=== PATIENT | female | born 1955 | race American Indian/Alaskan Native ===

== ENCOUNTER 2016-07-02 06:04 | Day surgery (SDC) | payer MEDICARE ==
[~2016-07-02 06:04] MED LIST: ANCEF/STERILE WATER 2 GM/20 ML IV NR; NACL 0.9% 1000 ML 1,000 ML IV SCH; PEPCID PO NR; VERSED IV NR
[2016-07-02] MEDS ORDERED: DIPRIVAN 10 MG/ML IV ONE (07:12)
--- NOTE | 2016-07-02 07:12 | Anesthesia Consultation ---
Anesthesia Consult and Med Hx Date of service: 07/02/16 - Airway Anesthetic Teeth Evaluation: Dentures ROM Head & Neck: Inadequate Mental/Hyoid Distance: Adequate Mallampati Class: Class IV Intubation Access Assessment: Difficult - Pulmonary Exam CTA: Yes - Cardiac Exam Cardiac Exam: RRR - Pre-Operative Health Status ASA Pre-Surgery Classification: ASA3 Proposed Anesthetic Plan: MAC - Pre-Anesthesia Comment Pre-Anesthesia Comments: Pt has had cervical fusion with plating and has minemal ability to extend neck.She presently has generalized pain due to being off her anti-inflammatories. She jurado history of interstitial cystitis. - Pulmonary Hx Smoking: Yes (CIGARETTES 1 PPD X 3 YRS, QUIT IN 1993) Hx Sleep Apnea: No - Cardiovascular System Hx Hypertension: Yes (FOR 20+ YRS, DR. MARIA DEL ROSARIO CHAHAL- PCP) - Central Nervous System Hx Neuromuscular Disorder: Yes (Rheumatoid arthritis) Hx Psychiatric Problems: No - Endocrine Hx Hypothyroidism: Yes - Other Systems Hx Cancer: No
[2016-07-02] MEDS ORDERED: XYLOCAINE 1% 20 mL ONE (07:14)
[2016-07-02] MEDS ORDERED: DILAUDID IV PRN (07:14)
[2016-07-02] MEDS ORDERED: ZOFRAN IV PRN (07:14)
[2016-07-02] MEDS ORDERED: NORCO 5/325 PO PRN (07:14)
--- NOTE | 2016-07-02 07:14 | Anesthesia Day of Surgery ---
Anesthesia Day of Surgery - Day of Surgery Patient Examined: Yes Patient H&P Reviewed: Yes Patient is NPO: Yes
[2016-07-02] MEDS ORDERED: XYLOCAINE MPF 2% ONE (07:17)
[2016-07-02] MEDS ORDERED: DECADRON ONE (07:19)
[2016-07-02] MEDS ORDERED: MARCAINE-EPI 0.5%-1:200,000 INFILTRATI ONE (07:53)
[2016-07-02] MEDS ORDERED: WATER FOR IRRIG STERILE IR ONE (07:53)
[2016-07-02] MEDS ORDERED: XYLOCAINE 1% 20 mL INFILTRATI ONE (07:54)
[2016-07-02] MEDS ORDERED: ZOFRAN IV NR (08:00)
[2016-07-02] MEDS ORDERED: DECADRON IV NR (08:00)
[2016-07-02] MEDS ORDERED: XYLOCAINE 1% 20 mL INFILTRATI NR (08:19)
--- NOTE | 2016-07-02 08:31 | Mammography Report ---
NEEDLE LOCALIZATION AND HOOKWIRE PLACEMENT RIGHT BREAST:07/02/16 CLINICAL: Right breast calcifications. COMPARISON: 04/23/16 mammogram. FINDINGS: Using mammographic guidance, 1% lidocaine local anesthesia and sterile technique, a 12.0-cm Potter hookwire was placed from a lateral approach to localize lateral and inferior calcifications. Two views demonstrated satisfactory targeting. The hookwire was deployed and two additional orthogonal images were obtained. The patient tolerated the procedure well and there were no apparent complications. IMPRESSION: Uncomplicated hookwire placement right breast.
[2016-07-02] MEDS ORDERED: NEO SYNEPHRINE/NS Syringe(OR USE) IV ONE (09:26)
[2016-07-02] MEDS ORDERED: MARCAINE 0.25% INFILTRATI ONE (09:31)
[2016-07-02] MEDS ORDERED: NACL 0.9% 1000 ML 1,000 ML ONE (09:47)
--- NOTE | 2016-07-02 10:02 | Short Stay Summary ---
Short Stay Documentation Date of service: 07/02/16 - History H&P: obtained from office - Allergies and Medications Current Medications: Allergies codeine Adverse Reaction (Verified 06/13/16 10:19) Vomiting, headaches Home Medications Medication Instructions Recorded Confirmed Last Taken Type Albuterol Sulfate [Ventolin HFA] 2 puff IH Q4-6H PRN 06/13/16 07/02/16 06/30/16 History Bisoprolol/Hctz [Ziac 10-6.25] 1 each PO DAILY 06/13/16 07/02/16 07/01/16 History Cyclobenzaprine [Flexeril] 10 mg PO QHS 06/13/16 06/13/16 Unknown History Etodolac [Etodolac ER] 500 mg PO BID 06/13/16 07/02/16 06/26/16 History Fluticasone [Flonase] 1 spray NS BID 06/13/16 07/02/16 06/25/16 History Gabapentin [Neurontin] 300 mg PO BID 06/13/16 07/02/16 07/01/16 History HYDROcodone/APAP 5-325 [[place] 1 each PO BID PRN 06/13/16 07/02/16 07/01/16 History 5/325] Levothyroxine Sodium 137 mcg PO QAM 06/13/16 07/02/16 07/01/16 History [Levothyroxine] Losartan [Cozaar] 100 mg PO QDAY 06/13/16 07/02/16 07/01/16 History Montelukast [Singulair] 10 mg PO QPM 06/13/16 07/02/16 06/30/16 History methylPREDNISolone [Medrol] 4 mg PO QDAY 06/13/16 07/02/16 07/01/16 History traMADol [Ultram 50 MG tab] 50 mg PO Q6HR PRN #30 tablet 07/02/16 Unknown Rx Active Medications Acetaminophen/Hydrocodone Bitart ([place] 5/325) 2 each PO ONCE PRN PRN Reason: Pain, Moderate (4-6) Stop: 07/02/16 16:00 Cefazolin Sodium (Ancef/Sterile Water 2 Gm/20 Ml) 2 gm IV PREOP NR Stop: 07/02/16 23:59 Dexamethasone (Decadron) 10 mg IV PREOP NR Stop: 07/02/16 16:00 Famotidine (Pepcid) 20 mg PO PREOP NR Stop: 07/02/16 23:59 Last Admin: 07/02/16 07:10 Dose: 20 mg Hydromorphone HCl (Dilaudid) 0.5 mg IV Q10MIN PRN PRN Reason: Pain , Severe (7-10) Stop: 07/05/16 16:00 Sodium Chloride (Nacl 0.9% 1000 Ml) 1,000 mls @ 75 mls/hr IV DIRECT SYDNI Last Admin: 07/02/16 08:30 Dose: 75 mls/hr Lidocaine (Xylocaine 1% 20 Ml) 20 ml INFILTRATI ONCE NR Stop: 07/02/16 16:00 Midazolam HCl (Versed) 2 mg IV PREOP NR Stop: 07/02/16 23:59 Last Admin: 07/02/16 08:33 Dose: 2 mg Ondansetron HCl (Zofran) 4 mg IV ONCE PRN PRN Reason: Nausea And Vomiting Stop: 07/02/16 16:00 Ondansetron HCl (Zofran) 4 mg IV PREOP NR Stop: 07/02/16 16:00 - Brief post op/procedure progress note Date of procedure: 07/02/16 Pre-op diagnosis: Abnormal right mammogram Post-op diagnosis: same Procedure: Right needle localization excisonal biopsy Anesthesia: GETA Findings: Radiograph specimen with suspicious microcalcifications present Surgeon: FRANKLYN MORALES Estimated blood loss: minimal Pathology: list (right breast excisional biopsy) Specimen disposition: to lab Condition: stable - Disposition Condition at discharge: Good Disposition: DISCHARGED TO HOME OR SELFCARE Short Stay Discharge Plan Activity: other (no heavy lifting) Diet: low carbohydrate Wound: other (keep incision clean, dry and intact; may shower in 24 hours; no baths, pools or lakes; do not rub or scrub incision) Prescriptions: traMADol [Ultram 50 MG tab] 50 mg PO Q6HR PRN #30 tablet PRN Reason: Pain
--- NOTE | 2016-07-02 10:10 | Operative Report ---
Operative Report Operative Report: Date of procedure: June 27 Pre-operative diagnosis: Abnormal right mammogram with suspicious microcalcifications of the lower inner quadrant Post-operative diagnosis: Same Procedure name(s): Right needle localization excisional biopsy Surgeon: Carmen Andrade M.D. Anesthesia: Gen. Findings: Radiograph specimen with wire present within the area of suspicious microcalcifications Complications: None Drains: None Disposition: PACU in good condition Indications for operative procedure: This is a 60-year-old lady with recent findings of suspicious microcalcifications of the right breast of he lower inner quadrant. Recommendations were to proceed with stereotactic breast biopsy and patient wished to proceed with surgical excision excision given concerns of the positioning needed for stereotactic table. The above procedure was explained to the patient in great detail and she wished to proceed. Procedure in detail: Wire was placed by radiology prior to proceeding to surgery to localize microcalcifications of the right lower inner breast. The patient was taken to the operating room. Gen. anesthesia was administered without any complications. Right breast was prepped and draped in the normal operative sterile fashion. The wire was identified. Skin incision was then made through the skin with a 15 blade knife with dissection taken down to the subcutaneous tissues with the aid of Bovie cautery. Superior flap was then raised and taken down posteriorly followed by raising of the medial flap, inferior flap and lateral flap. The specimen was appropriately removed with the Bovie cautery with the wire not encountered nor seen. Radiograph specimen with wire present with suspicious calcifications present. Hemostasis was noted. Breast cavity was irrigated. The skin and tissues were anesthetized with 1% lidocaine with quarter percent marcaine. The subcutaneous tissue were approximated and closed with interrupted 3-0 Vicryl. The skin was closed with a running 4-0 Monocryl and skin affix. The patient tolerated the surgery very well and she was awakened from anesthesia without any complication and then transferred to PACU in good condition.
--- NOTE | 2016-07-02 10:32 | Mammography Report ---
SPECIMEN RADIOGRAPH RIGHT BREAST: 07/02/16 06:04:00 CLINICAL: Surgical excision of calcifications. FINDINGS: The targeted calcifications and a hookwire are identified within the specimen. IMPRESSION: Excision of targeted calcifications.
--- NOTE | 2016-07-02 10:45 | Post Anesthesia Evaluation ---
- Post Anesthesia Evaluation Patient Participated: Yes Airway Patent: Yes Stable Respiratory Function: Yes Nausea/Vomiting: No Temp > 96.8F: Yes Pain Manageable: Yes Adequeate Hydration: Yes Anesthesia Complications: No Block Receding Appropriately: Not Applicable Patient on Ventilator: No
[2016-07-02 12:08] VITALS: BP 118/62
== END 2016-07-02 12:30 | disposition home or self-care (01) ==
LOC: OR 06:04
PROVIDERS: ATTEND Surgery
DX: R92.8 Other abnormal and inconclusive findings on diagnostic imaging of breast (principal); M06.9 Rheumatoid arthritis, unspecified; I10 Essential (primary) hypertension; E03.9 Hypothyroidism, unspecified; M41.9 Scoliosis, unspecified; Z87.891 Personal history of nicotine dependence; Z98.890 Other specified postprocedural states; Z98.1 Arthrodesis status; Z80.3 Family history of malignant neoplasm of breast
CPT/HCPCS: 19125; 19281; 76098; 88307; J0690; J1100; J2250; J2370; J2704; J7030; 88361

== ENCOUNTER 2016-08-13 07:42 | Day surgery (SDC) | payer MEDICARE ==
[~2016-08-13 07:42] MED LIST changes: -ANCEF/STERILE WATER 2 GM/20 ML IV NR; +NEURONTIN PO NR; +SUBLIMAZE IV ONE
--- NOTE | 2016-08-13 08:46 | Anesthesia Consultation ---
Anesthesia Consult and Med Hx Date of service: 08/13/16 - Airway Anesthetic Teeth Evaluation: Dentures (upper) ROM Head & Neck: Inadequate Mental/Hyoid Distance: Inadequate Mallampati Class: Class IV Intubation Access Assessment: Possibly Difficult - Pulmonary Exam CTA: Yes - Cardiac Exam Cardiac Exam: RRR - Pre-Operative Health Status ASA Pre-Surgery Classification: ASA3 Proposed Anesthetic Plan: General - Pre-Anesthesia Comment Pre-Anesthesia Comments: HX cervical fusion with plates, inadequate neck mobility. Anesthesia 06/2016, tolerated well with LMA #4 - Pulmonary Hx Smoking: Yes (CIGARETTES 1 PPD X 3 YRS, QUIT IN 1993) - Cardiovascular System Hx Hypertension: Yes (FOR 20+ YRS, DR. MARIA DEL ROSARIO CHAHAL- PCP) - Central Nervous System Hx Neuromuscular Disorder: Yes (Rheumatoid arthritis) Hx Psychiatric Problems: No - Endocrine Hx Hypothyroidism: Yes - Other Systems Hx Cancer: Yes (RIGHT BREAST, DX: 06/2016)
--- NOTE | 2016-08-13 08:47 | Anesthesia Day of Surgery ---
Anesthesia Day of Surgery - Day of Surgery Patient Examined: Yes Patient H&P Reviewed: Yes Patient is NPO: Yes Beta Blockers: Yes
[2016-08-13] MEDS ORDERED: PEPCID PO NR (09:00)
[2016-08-13] MEDS ORDERED: XYLOCAINE 1% 20 mL ONE ×2 (09:03→11:15)
[2016-08-13] MEDS ORDERED: ANCEF/STERILE WATER 2 GM/20 ML IV NR (10:00)
[2016-08-13] MEDS ORDERED: DIPRIVAN 10 MG/ML IV ONE (10:48)
[2016-08-13] MEDS ORDERED: DILAUDID ONE (10:49)
[2016-08-13] MEDS ORDERED: NEURONTIN PO NR (11:00)
[2016-08-13] MEDS ORDERED: MARCAINE-EPI 0.5%-1:200,000 INFILTRATI ONE (11:15)
[2016-08-13] MEDS ORDERED: DECADRON ONE (11:15)
[2016-08-13] MEDS: SUBLIMAZE IV NR ×2 (11:32→11:35)
--- NOTE | 2016-08-13 11:41 | Mammography Report ---
Right breast needle localization procedure. History: Right microcalcifications. Findings: 2 wire localization was used in the study due to the extent of microcalcifications. Using mammographic guidance, a 7.5 cm Potter needle was advanced into the posterior margin of the microcalcifications. A hookwire was left in place. Subsequently, a 5 cm Potter needle was advanced into the anterior margin of the calcifications in the right breast. A hookwire was left in place in adequate position of the wires was confirmed. The patient tolerated the procedure well clinically and was sent to surgery in satisfactory condition.
[2016-08-13] MEDS ORDERED: XYLOCAINE MPF 2% ONE (12:45)
[2016-08-13] MEDS ORDERED: NEO SYNEPHRINE/NS Syringe(OR USE) IV ONE (13:34)
[2016-08-13] MEDS ORDERED: WATER FOR IRRIG STERILE IR ONE (14:10)
[2016-08-13] MEDS ORDERED: METHYLENE BLUE IV ONE (14:11)
[2016-08-13] MEDS ORDERED: ZOFRAN ONE (14:24)
--- NOTE | 2016-08-13 15:33 | Short Stay Summary ---
Short Stay Documentation Date of service: 08/13/16 - History H&P: obtained from office - Allergies and Medications Current Medications: Allergies codeine Adverse Reaction (Verified 06/13/16 10:19) Vomiting, headaches Home Medications Medication Instructions Recorded Confirmed Last Taken Type Albuterol Sulfate [Ventolin HFA] 2 puff IH Q4-6H PRN 06/13/16 08/13/16 08/11/16 History Bisoprolol/Hctz [Ziac 10-6.25] 1 each PO DAILY 06/13/16 08/11/16 08/13/16 06:45 History Cyclobenzaprine [Flexeril] 10 mg PO QHS 06/13/16 08/11/16 08/12/16 History Etodolac [Etodolac ER] 500 mg PO BID 06/13/16 08/13/16 08/08/16 History Fluticasone [Flonase] 1 spray NS BID 06/13/16 08/11/16 08/12/16 History Gabapentin [Neurontin] 300 mg PO BID 06/13/16 08/11/16 08/12/16 History HYDROcodone/APAP 5-325 [[place] 1 each PO BID PRN 06/13/16 08/11/16 08/12/16 History 5/325] Levothyroxine Sodium 137 mcg PO QAM 06/13/16 08/11/16 08/13/16 06:45 History [Levothyroxine] Losartan [Cozaar] 100 mg PO QDAY 06/13/16 08/11/16 08/13/16 06:45 History Montelukast [Singulair] 10 mg PO QPM 06/13/16 08/11/16 08/12/16 History methylPREDNISolone [Medrol] 4 mg PO QDAY 06/13/16 08/11/16 08/12/16 History traMADol [Ultram 50 MG tab] 50 mg PO Q6HR PRN #30 tablet 07/02/16 08/11/1608/12 Rx Ibuprofen [Motrin 800 MG tab] 800 mg PO Q8HR PRN #30 tablet 08/13/16 Unknown Rx Potassium Chloride [Klor-Con M20] 1 tab PO QDAY 08/13/16 08/13/16 08/12/16 History Active Medications Cefazolin Sodium (Ancef/Sterile Water 2 Gm/20 Ml) 2 gm IV PREOP NR Stop: 08/13/16 23:59 Celecoxib (Celebrex) 200 mg PO PREOP NR Stop: 08/13/16 23:59 Last Admin: 08/13/16 10:48 Dose: 200 mg Famotidine (Pepcid) 20 mg PO PREOP NR Stop: 08/13/16 23:59 Fentanyl (Sublimaze) 100 mcg IV ONCE NR Stop: 08/13/16 23:59 Last Admin: 08/13/16 11:35 Dose: 50 mcg Gabapentin (Neurontin) 300 mg PO PREOP NR Stop: 08/13/16 23:59 Last Admin: 08/13/16 10:48 Dose: 300 mg Hydrocortisone Sodium Succinate (Solu-Cortef) 100 mg IV ONCE NR Stop: 08/13/16 23:59 Last Admin: 08/13/16 11:17 Dose: 100 mg Sodium Chloride (Nacl 0.9% 1000 Ml) 1,000 mls @ 100 mls/hr IV DIRECT SYDNI Last Admin: 08/13/16 10:45 Dose: 100 mls/hr Midazolam HCl (Versed) 2 mg IV PREOP NR Stop: 08/13/16 23:59 Last Admin: 08/13/16 11:32 Dose: 2 mg - Brief post op/procedure progress note Date of procedure: 08/13/16 Pre-op diagnosis: Right breast cancer Post-op diagnosis: same Procedure: Right breast partial mastectomy margin revision and SLNB Anesthesia: GETA Surgeon: FRANKLYN MORALES Estimated blood loss: minimal Pathology: list (right breast margin revision and SLN) Specimen disposition: to lab Condition: stable - Disposition Condition at discharge: Good Disposition: DISCHARGED TO HOME OR SELFCARE Short Stay Discharge Plan Activity: other (no heavy lifting) Diet: low fat Wound: other (keep incision clean and dry; may shower in 24 hours; no baths, pools or lakes) Follow up with: MARIA DEL ROSARIO CHAHAL MD [Primary Care Provider] - 7 Days FRANKLYN MORALES MD [Staff Physician] - 7 Days Prescriptions: Ibuprofen [Motrin 800 MG tab] 800 mg PO Q8HR PRN #30 tablet PRN Reason: Pain
--- NOTE | 2016-08-13 15:48 | Operative Report ---
Operative Report Operative Report: Date of Surgery: August 13, 2016 Preoperative Diagnosis: Right breast cancer of the lower outer quadrant with positive surgical margins Postoperative Diagnosis: Same Procedure: Right breast partial mastectomy margin revision and SLNB Surgeon: Carmen Andrade MD Anesthesia: General Findings:SLNB with 4 nodes identified; partial mastectomy margin revision Complications: None Drains: None Disposition: PACU in good condition Indications for operative procedure: This is a 60-year-old lady newly diagnosed right breast cancer of the lower outer quadrant recently underwent excisional biopsy with findings of invasive carcinoma and DCIS in need of margin revision given positive surgical margins for DCIS and SLNB indicated given invasive breast cancer. Recommendation were to proceed with the above procedure. Patient wished to proceed. Procedure in Detail: The patient was taken to the operating room and was laid supine. Radiology placed 2 wires to localize additional macrocalcifications for excision. Gen. anesthesia was administered. The right breast and axilla were prepped and draped in was operative fashion. The nipple was injected with radioisotope and 1 mL of blue dye. Timeout was performed. Gamma probe was inserted into the axilla for identification of sentinel lymph node biopsies. Skin incision was made with 15 blade knife with dissection taken down to the subcutaneous tissues. Axillary fascia was opened. Gamma probe was inserted for identification of sentinel lymph nodes. 4 sentinel lymph nodes were identified associated with the axillary lipoma that were appropriately removed. Hemostasis was noted. Axillary cavity was irrigated. Axillary fascia was approximated and closed with interrupted 3-0 Vicryl and skin closed with running 4-0 Monocryl and skin affix. Attention was then taken towards the margin revision. The wires were identified that were marking the area of additional microcalcifications for excision that were thought to be part of the excisional biopsy cavity site. Skin incision was made with a 10 blade knife at the surgical incision around the 7:30 position. First began with the margin revision, seroma cavity was encountered and drain. Then began with revising the margins superiorly, medially , posteriorly and inferiorly with the aid of the bovie cautery. These were appropriately marked and sent to pathology. Attention was then taken towards location of the wires. The wires were noted not to be located within the biopsy cavity site that was originally thought to be located that marked the area of additional calcifications that needed to be removed given high suspicion for malignancy. Discussed these findings with Dr. Hdez with my concern that the area of excision needed was at least 7 cm that was not part of or continuous with the current surgical site and would result in removal over 35% of the patient's breast. It was decided to remove the wires that were placed by radiology for localization and not to proceed with any additional surgery. Patient will need to come back for a right total mastectomy given the extensiveness of macro calcifications present that are highly suspicious for malignancy given calcifications are not a located within the prior partial mastectomy site as recently thought from prior imaging. Breast cavity was appropriately irrigated and suctioned. Hemostasis was noted. The subcutaneous tissues were approximated and closed with interrupted 3-0 Vicryl and skin closed with running 4-0 Monocryl and skin affix. The patient tolerated surgery very well and she was awakened from anesthesia without any complications and transported to PACU in good condition.
--- NOTE | 2016-08-13 16:01 | Post Anesthesia Evaluation ---
- Post Anesthesia Evaluation Patient Participated: Yes Airway Patent: Yes Stable Respiratory Function: Yes Nausea/Vomiting: No Temp > 96.8F: Yes Pain Manageable: Yes Adequeate Hydration: Yes Anesthesia Complications: No
[2016-08-13] MEDS ORDERED: TORADOL IV PRN (16:02)
[2016-08-13] MEDS ORDERED: DILAUDID IV PRN (16:58)
[2016-08-13] MEDS ORDERED: ZOFRAN IV PRN (16:58)
[2016-08-13 18:17] VITALS: BP 120/78
--- NOTE | 2016-08-13 21:45 | Admit Criteria Form ---
Admission Criteria Documentation: AMBULATORY SURGERY EXCEPTION CRITERIA Ambulatory Surgery Exception Criteria ( Place 'X' for any and all applicable criteria): Surgery or procedure performed on ambulatory basis may require inpatient stay for[A] ANY ONE of the following(1)(2)(3)(4)(5)(6)(7)(8)(9): [X] I. A preoperative situation, condition, or finding that warrants inpatient stay as indicated by ANY ONE of the following: [] a) Inpatient care needed because of severity of a disease or condition rather than the surgery (eg, severe cardiac or respiratory disease, severe infection) (15) (16 ) (17) (18) [] b) Emergent procedure (eg, angioplasty for acute ischemia)(19) [] c) Complex surgical approach or situation as indicated by ANY ONE of the following(3): [] i) Open approach needed instead of usual endoscopic, transcatheter, or other less invasive procedure [] ii) Difficult approach because of previous operation [] iii) Airway monitoring required after open neck procedures(20)(21) [] iv) Large mass requiring unusually extensive dissection [] v) Additional complicating feature requiring inpatient care (eg, drain management)(22(23): [X] d) Major surgery in a pt with high anesthetic risk as indicated by ANY ONE of the following (2)(3)(5)(7)(8): [X] i) ASA risk class III or higher (severe systemic disease impairing function) [D] [] ii) Advanced age (eg, older than 85 years)(14)(24) [] iii) Symptomatic heart failure(25) [] iv) Symptomatic asthma or COPD(8)(21) [] v) Morbid obesity with hemodynamic or respiratory problems(20)( 21)(26)(27) [] vi) Obstructive sleep apnea(20)(21) [] vii) Former premature infants who are younger than 60 weeks [] viii) High risk for severe postoperative abnormalities (eg, severe postoperative hypocalcemia after parathyroidectomy for severe hyperparathyroidism)(27)( 28) [] ix) Unstable angina(25) [] e) Drug-related risk requiring inpatient stay as indicated by ANY ONE of the following(5)(10)(14)(32)(33) [] i) Procedure requires discontinuing drugs or other therapy (eg , antiarrhythmic medication, antiseizure medication), which necessitates inpatient observation or treatment.(18)(31) [] ii) Major surgery and high risk drug use as indicated by ANY ONE of the following: [] 1) Active abuse of cocaine or similar drug [] 2) Monoamine oxidase inhibitor use [] 3) Other drug identified as posing risk [] f) Inadequate outpatient care situation as indicated by ANY ONE of the following(5)(10)(14)(32)(33) [] i) Patient lives remote from medical facility and procedure has urgent complication potential, and temporary nearby residence cannot be arranged [] ii) Patient will have postprocedure incapacitation and inadequate assistance at home, or alternative level of care cannot be arranged. [] iii) Patient will have long general anesthesia or procedure side effect resolution time, and competent person to stay with patient on first postoperative night at home or alternative level of care cannot be arranged. []iv) Other inadequate outpatient situation that cannot be handled by other means [] II. A perioperative event, condition, or finding that warrants inpatient stay as indicated by ANY ONE of the following (1)(2)(3): [] a) Inadequate physiologic recovery: cardiovascular, respiratory, or hemodynamic status not normal or near preoperative baseline(18) [] b) Hemodynamic instability [] c) Patient not alert with near normal or baseline mental status [] d) Temperature not normal or as expected and not appropriate for outpatient treatment of condition [] e) Ambulatory or appropriate activity level status not yet achieved post procedure [E](34)(35)(36) [] f) Operative site not appropriate (eg, unexpected or excessive drainage or bleeding) [] g) Postoperative effects not resolved or adequately managed (eg, significant pain or vomiting not appropriate for outpatient or next level of care)(10)(12) [] h) Complicating features requiring inpatient care as indicated by ANY ONE of the following(37): [] i) Severe complications of procedure (eg, bowel injury, airway compromise, vascular injury,severe hemorrhage) [] ii) Extensive (eg, dissection far beyond usual scope of procedure ) or prolonged (eg, 120 minutes beyond usual) surgery needed requiring inpatient postoperative care [] iii) Conversion to an open or complex procedure that requires inpatient care (eg, open vs laparoscopic cholecystectomy, abdominal vs vaginal hysterectomy)(38) [] iv) Comorbid condition or test result identified during or post procedure that requires inpatient care (7) [] v) Malignant hyperthermia(30) [] vi) Other complicating feature requiring inpatient care(22)(23) Inpatient stay may be needed until ALL of the following are present (1)(2)(3)(4) (5)(6)(10)(14)(33)(40): []a) Physiologic recovery: cardiovascular, respiratory, and hemodynamic status normal or near preoperative baseline []b) Hemodynamic stability []c) Patient alert, with near normal or baseline mental status []d) Temperature appropriate: patient afebrile or temperature appropriate for outpt treatment of condition []e) Activity level appropriate: ambulatory or appropriate activity level post procedure []f) Operative site appropriate as indicated by ALL of the following: []i) Site dry or with expected drainage []ii) Any blood noted is as expected for procedure. []g) Postoperative effects resolved or managed as indicated by ALL of the following: []i) Pain management appropriate for outpatient (or next level of) care(10) []ii) Minimal nausea and vomiting: if present, successfully treated with oral medication(12) []iii) Headache, dizziness, or drowsiness (if present) are mild. []h) Voiding status acceptable as indicated by ANY ONE of the following: []i) Voiding spontaneously []ii) No voiding but instructions given for follow-up in 6 to 8 hours []iii) Urinary catheter in place, and instructions given for follow-up []i) Complicating features requiring inpatient care manageable at a lower level of care(37) []j) Comorbid conditions manageable at a lower level of care(37) The original [employer] content created by [employer] has been revised. The portions of the content which have been revised are identified through the use of italic text or in bold, and [facility] [place] has neither reviewed nor approved the modified material. All other unmodified content is copyright [employer]. Please see references footnoted in the original [employer] edition 2016 Admission Criteria Met: Yes
== END 2016-08-13 18:10 | disposition home or self-care (01) ==
LOC: OR 07:42
PROVIDERS: ATTEND Surgery
DX: C50.511 Malignant neoplasm of lower-outer quadrant of right female breast (principal); I10 Essential (primary) hypertension; M06.9 Rheumatoid arthritis, unspecified; E03.9 Hypothyroidism, unspecified; Z87.891 Personal history of nicotine dependence
CPT/HCPCS: 19281; 19282; 19301; 36415; 38525; 64450; 78800; 84132; 88304; 88305; 88307; 88341; 88342; A9541; J0690; J1100; J1170; J1720; J1885; J2250; J2370; J2405; J2704; J3010; J7030; Q9968; 88333

== ENCOUNTER 2016-09-08 10:08 | Inpatient (IN) | payer MEDICARE ==
[~2016-09-08 10:08] MED LIST changes: +ANCEF/STERILE WATER 2 GM/20 ML 2 GM/20 ML SYRINGE IV SCH; -NACL 0.9% 1000 ML 1,000 ML IV SCH; -NEURONTIN PO NR; -PEPCID PO NR; -SUBLIMAZE IV ONE; -VERSED IV NR; +WATER FOR IRRIG STERILE IR ONE; +ceFAZolin 2 GM in NACL 0.9% 100 ML IV ONE
--- NOTE | 2016-09-08 11:35 | Anesthesia Consultation ---
Anesthesia Consult and Med Hx Date of service: 09/08/16 - Airway Anesthetic Teeth Evaluation: Dentures ROM Head & Neck: Inadequate Mental/Hyoid Distance: Inadequate Mallampati Class: Class III Intubation Access Assessment: Possibly Difficult - Pulmonary Exam CTA: Yes (clear blbs) - Cardiac Exam Cardiac Exam: RRR - Pre-Operative Health Status ASA Pre-Surgery Classification: ASA3 Proposed Anesthetic Plan: General - Pulmonary Hx Smoking: Yes (CIGARETTES 1 PPD X 3 YRS, QUIT IN 1993) - Cardiovascular System Hx Hypertension: Yes (FOR 20+ YRS, DR. MARIA DEL ROSARIO CHAHAL- PCP) - Central Nervous System Hx Neuromuscular Disorder: Yes (Rheumatoid arthritis) - Endocrine Hx Hypothyroidism: Yes - Other Systems Hx Cancer: Yes (RIGHT BREAST, DX: 06/2016) Hx Obesity: Yes - Additional Comments Anesthesia Medical History Comments: s/p ACDF
--- NOTE | 2016-09-08 11:36 | Anesthesia Day of Surgery ---
Anesthesia Day of Surgery - Day of Surgery Patient Examined: Yes Patient H&P Reviewed: Yes Patient is NPO: Yes Beta Blockers: Yes Cardiac Clearance: No Pulmonary Clearance: No
[2016-09-08] MEDS ORDERED: MARCAINE-EPI 0.5%-1:200,000 INFILTRATI NR (11:44)
[2016-09-08] MEDS ORDERED: DECADRON IV NR (11:44)
[2016-09-08] MEDS ORDERED: PROAIR IH NR (11:45)
[2016-09-08] MEDS ORDERED: VERSED IV NR (12:00)
[2016-09-08] MEDS ORDERED: NACL 0.9% 1000 ML 1,000 ML IV SCH (12:00)
[2016-09-08] MEDS ORDERED: NEURONTIN PO NR ×2 (12:00)
[2016-09-08] MEDS ORDERED: PEPCID PO NR (12:00)
[2016-09-08] MEDS ORDERED: MARCAINE-EPI/PF 0.5%-1:200,000 INFILTRATI NR (13:00)
[2016-09-08] MEDS ORDERED: DILAUDID ONE ×2 (13:23→17:53)
[2016-09-08] MEDS ORDERED: DIPRIVAN 10 MG/ML IV ONE (13:23)
[2016-09-08] MEDS ORDERED: SUBLIMAZE ONE (14:00)
[2016-09-08] MEDS ORDERED: XYLOCAINE 1% 20 mL ONE (14:26)
--- NOTE | 2016-09-08 14:39 | Short Stay Summary ---
Short Stay Documentation Date of service: 09/08/16 - History H&P: obtained from office - Allergies and Medications Current Medications: Allergies codeine Adverse Reaction (Verified 06/13/16 10:19) Vomiting, headaches Home Medications Medication Instructions Recorded Confirmed Last Taken Type Albuterol Sulfate [Ventolin HFA] 2 puff IH Q4-6H PRN 06/13/16 09/08/16 09/08/16 12:52 History Bisoprolol/Hctz [Ziac 10-6.25] 1 each PO DAILY 06/13/16 09/08/16 09/08/16 09:00 History Cyclobenzaprine [Flexeril] 10 mg PO QHS 06/13/16 09/08/16 08/18/16 09:00 History Etodolac [Etodolac ER] 500 mg PO BID 06/13/16 09/08/16 09/02/16 09:00 History Fluticasone [Flonase] 1 spray NS BID 06/13/16 09/08/16 08/12/16 History Gabapentin [Neurontin] 300 mg PO BID 06/13/16 09/08/16 09/07/16 09:00 History HYDROcodone/APAP 5-325 [[place] 1 each PO BID PRN 06/13/16 09/08/16 09/07/16 21: 00 History 5/325] Levothyroxine Sodium 137 mcg PO QAM 06/13/16 09/08/16 09/08/16 09:00 History [Levothyroxine] Losartan [Cozaar] 100 mg PO QDAY 06/13/16 09/08/16 09/08/16 09:00 History Montelukast [Singulair] 10 mg PO QPM 06/13/16 09/08/16 09/08/16 09:00 History methylPREDNISolone [Medrol] 4 mg PO QDAY 06/13/16 09/08/16 09/07/16 09:00 History traMADol [Ultram 50 MG tab] 50 mg PO Q6HR PRN #30 tablet 07/02/16 09/08/1608/18 09:00 Rx Potassium Chloride [Klor-Con M20] 1 tab PO QDAY 08/13/16 09/08/16 09/07/16 09: 00 History HYDROcodone/APAP 5-325 [[place] 1 each PO Q6HR PRN #20 tablet 09/08/16 Unknown Rx 5/325] Active Medications Albuterol (Proair) 1 puff IH PREOP NR Stop: 09/08/16 23:59 Bupivacaine HCl/Epinephrine Bitart (Marcaine-Epi/Pf 0.5%-1:200,000) 30 ml INFILTRATI ONCE NR Stop: 09/08/16 23:59 Celecoxib (Celebrex) 200 mg PO PREOP NR Stop: 09/08/16 23:59 Last Admin: 09/08/16 12:07 Dose: 200 mg Dexamethasone (Decadron) 4 mg IV ONCE NR Stop: 09/08/16 23:59 Famotidine (Pepcid) 20 mg PO PREOP NR Stop: 09/08/16 23:59 Last Admin: 09/08/16 12:06 Dose: 20 mg Gabapentin (Neurontin) 300 mg PO PREOP NR Stop: 09/08/16 23:59 Last Admin: 09/08/16 12:07 Dose: 300 mg Gabapentin (Neurontin) 300 mg PO PREOP NR Stop: 09/08/16 23:59 Last Admin: 09/08/16 12:07 Dose: 300 mg Hydromorphone HCl (Dilaudid) 0.25 mg IV Q5MIN PRN PRN Reason: Pain, Moderate (4-6) Stop: 09/08/16 18:00 Cefazolin Sodium (Ancef/Sterile Water 2 Gm/20 Ml) 2 gm in 20 mls @ 80 mls/hr IV PREOP SYDNI Stop: 09/08/16 23:59 Sodium Chloride (Nacl 0.9% 1000 Ml) 1,000 mls @ 100 mls/hr IV DIRECT SYDNI Last Admin: 09/08/16 12:06 Dose: 100 mls/hr Midazolam HCl (Versed) 2 mg IV PREOP NR Stop: 09/08/16 23:59 - Brief post op/procedure progress note Date of procedure: 09/08/16 Pre-op diagnosis: Multifocal right breast cancer Post-op diagnosis: same Procedure: Right total mastectomy Anesthesia: GETA Findings: Right total mastectomy Surgeon: FRANKLYN MORALES Estimated blood loss: minimal Pathology: list (right total mastectomy) Specimen disposition: to lab Condition: stable - Disposition Condition at discharge: Good Disposition: DC/TX SHORT-TERM GEN HOSP INPT Short Stay Discharge Plan Activity: other (no heavy lifting) Diet: advance as tolerated Wound: other (keep incision clean and dry; may shower in 24 hours; no baths, pools or lakes; do not rub or scrub incision) Follow up with: MARIA DEL ROSARIO CHAHAL MD [Primary Care Provider] - 7 Days FRANKLYN MORALSE MD [Staff Physician] - 7 Days Prescriptions: HYDROcodone/APAP 5-325 [[place] 5/325] 1 each PO Q6HR PRN #20 tablet PRN Reason: Pain
[2016-09-08] MEDS ORDERED: PERCOCET 5/325 PO PRN (14:46)
[2016-09-08] MEDS ORDERED: SODIUM CHLORIDE FLUSH SYRINGE 10 ML IV PRN (14:46)
[2016-09-08] MEDS ORDERED: ZOFRAN IV PRN (14:46)
--- NOTE | 2016-09-08 14:46 | Operative Report ---
Operative Report Operative Report: Date of procedure: 09/08/2016 Pre-operative diagnosis: Multicentric right breast cancer of the lower outer and lower inner quadrants Post-operative diagnosis: Same Procedure name(s): Right total mastectomy Surgeon: Carmen Andrade M.D. Band Tumbler: Mr. Beckett Anesthesia: Gen. Findings: Right total mastectomy with seroma pocket identified; fat necrosis noted at prior SLNB site Complications: None Drains: 19 Austrian TEMO drain Disposition: PACU in good condition Indications for operative procedure: This is a 60-year-old postmenopausal -[place] lady with newly diagnosed right multicentric breast cancer, pT2N0(i+)M0. Recommendation was to proceed with a total mastectomy given extensive DCIS. Patient wished to proceed with the above. Procedure in detail: Anesthesia placed right pectoral muscle block. Patient was taken to operating room and was laid supine. Gen. anesthesia was administered. The right breast was prepped and draped in the normal sterile operative fashion. Yypical mastectomy markings were made. A skin incision was made with a 10 blade knife with dissection taken down to the subcutaneous tissues. First began with raising of the superior flap taken to the level of the clavicle and posteriorly to the pectoralis muscle fascia by raising of the medial flap from the level of the sternum taken posteriorly to the pectoralis muscle, followed by raising of the inferior flap to the level of the inframammary fold taken posteriorly to the pectoralis muscle and raising of the lateral flap taken from the latissimus dorsi muscle and posteriorly to the pectoralis muscle. Seroma cavity and scar with fat necrosis from SLNb was encountered during surgery. The breast was removed from the pectoralis muscle without incident and sent to pathology. Hemostasis was noted. 19 Austrian TEMO drain was placed. The subcutaneous tissues were approximated and closed using interrupted 3-0 Vicryl. The skin was closed using a running 4-0 Monocryl and skin affix. The patient tolerated surgery very well and she was awaken from anesthesia without any complications and transferred to PACU in good condition.
[2016-09-08] MEDS ORDERED: PROAIR IH PRN (14:49)
[2016-09-08] MEDS ORDERED: LACTATED RINGERS 1,000 ML IV SCH (15:00)
[2016-09-08] MEDS ORDERED: WATER FOR IRRIG STERILE IR ONE (15:19)
[2016-09-08] MEDS ORDERED: ZOFRAN ONE (17:16)
[2016-09-08] MEDS ORDERED: DECADRON ONE (17:16)
[2016-09-08] MEDS ORDERED: XYLOCAINE MPF 2% ONE (17:16)
[2016-09-08] MEDS ORDERED: NACL 0.9% 1000 ML 1,000 ML ONE (17:54)
[2016-09-08] MEDS: DILAUDID IV PRN ×2 (17:55→18:05)
[2016-09-08] MEDS ORDERED: PROVENTIL IH PRN (20:45)
--- NOTE | 2016-09-08 21:04 | Admit Criteria Form ---
Admission Criteria Documentation: AMBULATORY SURGERY EXCEPTION CRITERIA Ambulatory Surgery Exception Criteria ( Place 'X' for any and all applicable criteria): Surgery or procedure performed on ambulatory basis may require inpatient stay for[A] ANY ONE of the following(1)(2)(3)(4)(5)(6)(7)(8)(9): [X] I. A preoperative situation, condition, or finding that warrants inpatient stay as indicated by ANY ONE of the following: [] a) Inpatient care needed because of severity of a disease or condition rather than the surgery (eg, severe cardiac or respiratory disease, severe infection) (15) (16 ) (17) (18) [] b) Emergent procedure (eg, angioplasty for acute ischemia)(19) [] c) Complex surgical approach or situation as indicated by ANY ONE of the following(3): [] i) Open approach needed instead of usual endoscopic, transcatheter, or other less invasive procedure [] ii) Difficult approach because of previous operation [] iii) Airway monitoring required after open neck procedures(20)(21) [] iv) Large mass requiring unusually extensive dissection [] v) Additional complicating feature requiring inpatient care (eg, drain management)(22(23): [X] d) Major surgery in a pt with high anesthetic risk as indicated by ANY ONE of the following (2)(3)(5)(7)(8): [X] i) ASA risk class III or higher (severe systemic disease impairing function) [D] [] ii) Advanced age (eg, older than 85 years)(14)(24) [] iii) Symptomatic heart failure(25) [] iv) Symptomatic asthma or COPD(8)(21) [] v) Morbid obesity with hemodynamic or respiratory problems(20)( 21)(26)(27) [] vi) Obstructive sleep apnea(20)(21) [] vii) Former premature infants who are younger than 60 weeks [] viii) High risk for severe postoperative abnormalities (eg, severe postoperative hypocalcemia after parathyroidectomy for severe hyperparathyroidism)(27)( 28) [] ix) Unstable angina(25) [] e) Drug-related risk requiring inpatient stay as indicated by ANY ONE of the following(5)(10)(14)(32)(33) [] i) Procedure requires discontinuing drugs or other therapy (eg , antiarrhythmic medication, antiseizure medication), which necessitates inpatient observation or treatment.(18)(31) [] ii) Major surgery and high risk drug use as indicated by ANY ONE of the following: [] 1) Active abuse of cocaine or similar drug [] 2) Monoamine oxidase inhibitor use [] 3) Other drug identified as posing risk [] f) Inadequate outpatient care situation as indicated by ANY ONE of the following(5)(10)(14)(32)(33) [] i) Patient lives remote from medical facility and procedure has urgent complication potential, and temporary nearby residence cannot be arranged [] ii) Patient will have postprocedure incapacitation and inadequate assistance at home, or alternative level of care cannot be arranged. [] iii) Patient will have long general anesthesia or procedure side effect resolution time, and competent person to stay with patient on first postoperative night at home or alternative level of care cannot be arranged. []iv) Other inadequate outpatient situation that cannot be handled by other means [] II. A perioperative event, condition, or finding that warrants inpatient stay as indicated by ANY ONE of the following (1)(2)(3): [] a) Inadequate physiologic recovery: cardiovascular, respiratory, or hemodynamic status not normal or near preoperative baseline(18) [] b) Hemodynamic instability [] c) Patient not alert with near normal or baseline mental status [] d) Temperature not normal or as expected and not appropriate for outpatient treatment of condition [] e) Ambulatory or appropriate activity level status not yet achieved post procedure [E](34)(35)(36) [] f) Operative site not appropriate (eg, unexpected or excessive drainage or bleeding) [] g) Postoperative effects not resolved or adequately managed (eg, significant pain or vomiting not appropriate for outpatient or next level of care)(10)(12) [] h) Complicating features requiring inpatient care as indicated by ANY ONE of the following(37): [] i) Severe complications of procedure (eg, bowel injury, airway compromise, vascular injury,severe hemorrhage) [] ii) Extensive (eg, dissection far beyond usual scope of procedure ) or prolonged (eg, 120 minutes beyond usual) surgery needed requiring inpatient postoperative care [] iii) Conversion to an open or complex procedure that requires inpatient care (eg, open vs laparoscopic cholecystectomy, abdominal vs vaginal hysterectomy)(38) [] iv) Comorbid condition or test result identified during or post procedure that requires inpatient care (7) [] v) Malignant hyperthermia(30) [] vi) Other complicating feature requiring inpatient care(22)(23) Inpatient stay may be needed until ALL of the following are present (1)(2)(3)(4) (5)(6)(10)(14)(33)(40): []a) Physiologic recovery: cardiovascular, respiratory, and hemodynamic status normal or near preoperative baseline []b) Hemodynamic stability []c) Patient alert, with near normal or baseline mental status []d) Temperature appropriate: patient afebrile or temperature appropriate for outpt treatment of condition []e) Activity level appropriate: ambulatory or appropriate activity level post procedure []f) Operative site appropriate as indicated by ALL of the following: []i) Site dry or with expected drainage []ii) Any blood noted is as expected for procedure. []g) Postoperative effects resolved or managed as indicated by ALL of the following: []i) Pain management appropriate for outpatient (or next level of) care(10) []ii) Minimal nausea and vomiting: if present, successfully treated with oral medication(12) []iii) Headache, dizziness, or drowsiness (if present) are mild. []h) Voiding status acceptable as indicated by ANY ONE of the following: []i) Voiding spontaneously []ii) No voiding but instructions given for follow-up in 6 to 8 hours []iii) Urinary catheter in place, and instructions given for follow-up []i) Complicating features requiring inpatient care manageable at a lower level of care(37) []j) Comorbid conditions manageable at a lower level of care(37) The original [employer] content created by [employer] has been revised. The portions of the content which have been revised are identified through the use of italic text or in bold, and [facility] has neither reviewed nor approved the modified material. All other unmodified content is copyright [employer]. Please see references footnoted in the original [employer] edition 2016 Admission Criteria Met: Yes
[2016-09-08] MEDS: FLONASE NS SCH (23:06)
[2016-09-09] MEDS ORDERED: NORCO 5/325 PO PRN (00:18)
[2016-09-09] MEDS: FLONASE NS SCH (10:00)
--- NOTE | 2016-09-09 10:53 | Progress Note ---
Subjective Date of service: 09/09/16 Interval history: 1st POD after breast surgery Patient is in the bed, comfortable. Pain is well under control. No nausea or vomiting. No anesthesia complications Objective - Constitutional Vitals: Vital Signs - 12hr 09/09/16 09/09/16 09/09/16 00:30 04:00 07:50 Temperature 98.6 F 98.6 F Pulse Rate [ 77 76 Left] Respiratory 24 16 Rate Blood Pressure 134/80 105/67 [Left Arm] O2 Sat by Pulse 100 Oximetry 09/09/16 08:05 Temperature 98.4 F Pulse Rate [ 63 Left] Respiratory 20 Rate Blood Pressure 104/53 [Left Arm] O2 Sat by Pulse Oximetry
[2016-09-09 13:06] VITALS: BP 116/65
== END 2016-09-09 13:55 | disposition home or self-care (01) | DRG 582 ==
LOC: OR 10:08 → OB 17:52 → OBSVTOIN 09-09 08:31
PROVIDERS: ADMIT Surgery; ATTEND Surgery
PROC: 0HTT0ZZ Resection of Right Breast, Open Approach (ICD-10-PCS; principal; 2016-09-08)
DX: C50.511 Malignant neoplasm of lower-outer quadrant of right female breast (principal); Z68.41 Body mass index [BMI] 40.0-44.9, adult; C50.311 Malignant neoplasm of lower-inner quadrant of right female breast; I10 Essential (primary) hypertension; M06.9 Rheumatoid arthritis, unspecified; E03.9 Hypothyroidism, unspecified; E66.9 Obesity, unspecified; Z88.5 Allergy status to narcotic agent; Z79.899 Other long term (current) drug therapy; Z87.891 Personal history of nicotine dependence
CPT/HCPCS: 64450; 88307; G0378; J0690; J1100; J1170; J2250; J2405; J2704; J3010; J7030

== ENCOUNTER 2017-02-18 10:17 | Outpatient (CLI) | payer MEDICARE, BC ==
--- NOTE | 2017-02-18 13:45 | Nuclear Medicine Report ---
NM MUGA INDICATION: Long-term use of high-risk medication. History of chemotherapy for right breast. COMPARISON: None similar. FINDINGS: The patient's red blood cells were labeled with 20 mCi of Technetium 99m by UltraTag technique. Gated equilibrium views were obtained in CANADIAN projections. Computer analysis of left ventricular ejection fraction and motion wall was performed. The right atrium, right ventricle and left ventricle show normal size and contractility. The left ventricle ejection fraction is 65.4% (normal greater than 50%). The heart rate is 58 beats per minute. CONCLUSION: Normal MUGA scan. The left ventricle ejection fraction is 65.4%. Thank you for the opportunity to participate in this patient's care.
== END 2017-02-18 10:18 | disposition home or self-care (01) ==
LOC: NM 10:17
PROVIDERS: ATTEND Internal Medicine Hematology & Oncology
DX: C50.511 Malignant neoplasm of lower-outer quadrant of right female breast (principal); I10 Essential (primary) hypertension; E03.9 Hypothyroidism, unspecified; M06.9 Rheumatoid arthritis, unspecified; Z79.899 Other long term (current) drug therapy
CPT/HCPCS: 78472; A9560

== ENCOUNTER 2017-05-25 10:52 | Outpatient (CLI) | payer MEDICARE, BC ==
[2017-05-25] MEDS ORDERED: FLUSH HEPARIN IV ONE (12:00)
--- NOTE | 2017-05-25 15:37 | Nuclear Medicine Report ---
NUCLEAR MEDICINE MUGA DATED CARDIAC HISTORY: Breast cancer, evaluate left ventricular function. FINDINGS: 20 mCi of technetium 99m ultra-tag was injected. Heart rate measures 63 beats per minute. The planar images demonstrate no evidence for wall motion abnormality. The cardiac ejection fraction measures 72.4%. IMPRESSION: The cardiac ejection fraction measures 72.4%.
== END 2017-05-25 10:53 | disposition home or self-care (01) ==
LOC: NM 10:52
PROVIDERS: ATTEND Internal Medicine Hematology & Oncology
DX: C50.511 Malignant neoplasm of lower-outer quadrant of right female breast (principal); I10 Essential (primary) hypertension; E03.9 Hypothyroidism, unspecified; M05.761 Rheumatoid arthritis with rheumatoid factor of right knee without organ or systems involvement; Z79.899 Other long term (current) drug therapy
CPT/HCPCS: 78472; A9560; J1642

== ENCOUNTER 2017-08-12 11:41 | Outpatient (CLI) | payer MEDICARE ==
[2017-08-12] MEDS ORDERED: FLUSH HEPARIN IV ONE ×2 (12:11→13:00)
--- NOTE | 2017-08-13 08:15 | Nuclear Medicine Report ---
NUCLEAR MEDICINE MUGA GATED CARDIAC History: Malignant neoplasm of right breast. Comparison: 02/18/17. Findings: The planar images of the heart demonstrate no evidence for left ventricular wall motion abnormality. The cardiac ejection fraction ranges from 65.0-70.2%. On the previous exam dated 05/25/17, the cardiac ejection fraction measured 72.4%. Impression: Cardiac ejection fraction as described. No left ventricular wall motion abnormalities appreciated.
== END 2017-08-12 11:42 | disposition home or self-care (01) ==
LOC: NM 11:41
PROVIDERS: ATTEND Internal Medicine Hematology & Oncology
DX: Z08 Encounter for follow-up examination after completed treatment for malignant neoplasm (principal); M05.761 Rheumatoid arthritis with rheumatoid factor of right knee without organ or systems involvement; Z79.899 Other long term (current) drug therapy; Z87.891 Personal history of nicotine dependence; I10 Essential (primary) hypertension
CPT/HCPCS: 78472; A9560; J1642

== ENCOUNTER 2017-11-09 12:52 | Outpatient (CLI) | payer MEDICARE ==
[2017-11-09] MEDS ORDERED: FLUSH HEPARIN IV ONE (13:30)
--- NOTE | 2017-11-10 07:34 | Nuclear Medicine Report ---
NUCLEAR MEDICINE MUGA GATED CARDIAC SCAN History: Malignant neoplasm of lower quadrant of right breast. Assess left ventricular function during chemotherapy. Technique: Technetium 99m labeled red blood cells. First-pass technique. Comparison: 08/12/17. Findings: The plane are images of the heart demonstrate good cardiac wall motion with no evidence for left ventricular wall motion abnormality. The cardiac ejection fraction ranges from 71.6-74.0%. On the previous examination dated 08/12/17, the cardiac ejection fraction ranged from 65.0-70.2%. IMPRESSION: The cardiac ejection fraction ranges from 71.6-74.0% and is essentially unchanged or mildly improved since the previous examination.
== END 2017-11-09 12:53 | disposition home or self-care (01) ==
LOC: NM 12:52
PROVIDERS: ATTEND Internal Medicine Hematology & Oncology
DX: C50.511 Malignant neoplasm of lower-outer quadrant of right female breast (principal); I10 Essential (primary) hypertension; E03.9 Hypothyroidism, unspecified; F32.89 Other specified depressive episodes; Z90.11 Acquired absence of right breast and nipple; Z87.891 Personal history of nicotine dependence
CPT/HCPCS: 78472; A9560; J1642

== ENCOUNTER 2018-08-19 12:01 | Outpatient (CLI) | payer MEDICARE ==
--- NOTE | 2018-08-19 14:26 | XRay Report ---
BILATERAL KNEES STANDING, AP VIEW History: Bilateral primary osteoarthritis. Findings: Severe osteoarthritic changes are identified throughout both knees. The left knee is more affected. There is complete or near-complete loss of joint space particularly in the left knee. No obvious fracture or suspicious bony lesion. The there also appears to be a mild varus deformity bilaterally. Impression: Severe osteoarthritic changes, left greater than right. Mild varus deformity.
--- NOTE | 2018-08-19 14:27 | XRay Report ---
LEFT HIP, 2 views: History: Pain in left hip. Normal bone mineralization. Moderate osteoarthritic changes are identified at the left hip. No evidence for fracture, dislocation, bone lesion or osteonecrosis. IMPRESSION: Moderate osteoarthritis.
--- NOTE | 2018-08-19 14:28 | XRay Report ---
BILATERAL SHOULDERS, 3 VIEWS History: Bilateral shoulder pain. Findings: Normal bone mineralization. Mild osteoarthritic changes are identified in both shoulders. No evidence for fracture, dislocation or ligamentous injury. No bone lesion. Soft tissues are unremarkable. Impression: Mild osteoarthritis.
== END 2018-08-19 12:02 | disposition home or self-care (01) ==
LOC: XRAY 12:01
PROVIDERS: ATTEND Orthopaedic Surgery
DX: M17.0 Bilateral primary osteoarthritis of knee (principal); M16.12 Unilateral primary osteoarthritis, left hip; M19.012 Primary osteoarthritis, left shoulder; M19.011 Primary osteoarthritis, right shoulder; I10 Essential (primary) hypertension; E03.9 Hypothyroidism, unspecified; Z90.710 Acquired absence of both cervix and uterus; Z87.891 Personal history of nicotine dependence; Z90.721 Acquired absence of ovaries, unilateral
CPT/HCPCS: 73565

== ENCOUNTER 2019-04-28 05:59 | Inpatient (IN) | payer MEDICARE ==
--- NOTE | 2019-04-25 11:55 | Anesthesia Consultation ---
Anesthesia Consult and Med Hx Date of service: 04/28/19 - Airway Anesthetic Teeth Evaluation: Good, Dentures, Edentulous (UPPER\) ROM Head & Neck: Inadequate (S/P ACDF) - Pulmonary Hx Smoking: Yes (STOPPED 2003) Hx Asthma: Yes (SEASONAL , PRN INHALER) COPD: No Hx Pneumonia: No Hx Sleep Apnea: No (NANI PRE SCREEN HIGH RISK) - Cardiovascular System Hx Hypertension: Yes (X 25 YRS. [facility] [id number]) - Central Nervous System Hx Neuromuscular Disorder: Yes (Rheumatoid arthritis) Hx Back Pain: Yes Hx Psychiatric Problems: Yes (Depression) - Gastrointestinal Hx Gastroesophageal Reflux Disease: Yes - Endocrine Hx End Stage Renal Disease: No Hx Thyroid Disease: Yes Hx Hypothyroidism: Yes (ON DAILY MEDS) - Other Systems Hx Cancer: Yes (R Breast) Hx Obesity: Yes - Additional Comments Anesthesia Medical History Comments: Consider steroid stress dose. Had severe sore throat post op X four months. Does not want SAB
[2019-04-25 12:39] LABS: Basophils % (Auto) 0.4 % (0.0-1.8); Eosinophils % (Auto) 0.7 % (0.0-4.3); Hemoglobin 12.8 gm/dl (10.1-14.3); Lymphocytes # (Auto) 2.4 K/mm3 (1.2-5.4); Lymphocytes % (Auto) 44.6 % (13.4-35.0); Mean Corpuscular HGB Conc 33 % (30-34); Mean Corpuscular Volume 94 fl (79-97); Monocytes # (Auto) 0.7 K/mm3 (0.0-0.8); Monocytes % (Auto) 12.2 % (0.0-7.3); Platelet Count 245 K/mm3 (140-440); Red Blood Count 4.16 M/mm3 (3.65-5.03); Red Cell Distribution Width 15.1 % (13.2-15.2)
[2019-04-25 12:59] LABS: Alanine Aminotransferase 20 units/L (7-56); BUN/Creatinine Ratio 19; Blood Urea Nitrogen 13 mg/dL (7-17); Calcium 9.1 mg/dL (8.4-10.2); Hemolysis Index 5
[~2019-04-28 05:59] MED LIST changes: -ANCEF/STERILE WATER 2 GM/20 ML 2 GM/20 ML SYRINGE IV SCH; +BUPIVACAINE/PF (0.5%) 5 MG/1 ML 30 ML VIAL INFILTRATI ONE; +KETOROLAC 30 MG/1 ML INJ IV ONE; +SODIUM CHLORIDE 0.9% 50 ML IVPB IV ONE; -WATER FOR IRRIG STERILE IR ONE; -ceFAZolin 2 GM in NACL 0.9% 100 ML IV ONE; +ceFAZolin/STERILE WATER 2 GM/20 ML SYRINGE IV NR
[2019-04-28] MEDS ORDERED: KETOROLAC 30 MG/1 ML INJ ONE (07:21)
[2019-04-28] MEDS ORDERED: BUPIVACAINE/PF (0.5%) 5 MG/1 ML 30 ML VIAL INFILTRATI ONE ×2 (07:21→10:10)
[2019-04-28] MEDS ORDERED: TRANEXAMIC ACID 1,000 MG/10 ML ONE (07:22)
[2019-04-28] MEDS ORDERED: SODIUM CHLORIDE 0.9% 100 ML ONE ×2 (07:22→07:23)
[2019-04-28] MEDS ORDERED: ONDANSETRON 4 MG/2 ML INJ IV PRN (07:34)
[2019-04-28] MEDS ORDERED: ACETAMINOPHEN 325 MG TAB PO NR (07:35)
[2019-04-28] MEDS ORDERED: MAGNESIUM OXIDE 400 MG TAB PO NR (07:35)
[2019-04-28] MEDS ORDERED: ONDANSETRON 4 MG/2 ML INJ ONE (07:46)
[2019-04-28] MEDS ORDERED: HYDROmorphone 1 MG/1 ML INJ ONE (07:46)
[2019-04-28] MEDS ORDERED: dexAMETHasone 20 MG/5 ML VIAL ONE (07:46)
[2019-04-28] MEDS ORDERED: fentaNYL 100 MCG/2 ML INJ ONE (07:46)
[2019-04-28] MEDS ORDERED: ROCURONIUM 50 MG/5 ML INJ IV ONE (07:46)
[2019-04-28] MEDS ORDERED: LIDOCAINE MPF (2%) 20 MG/1 ML VIAL 5 ML ONE (07:46)
[2019-04-28] MEDS ORDERED: KETAMINE/STERILE WATER 50 MG/ML SYRINGE ONE (07:47)
[2019-04-28] MEDS ORDERED: PROPOFOL 200 MG/20 ML VIAL IV ONE (07:47)
[2019-04-28] MEDS: LACTATED RINGERS 1,000 ML IV SCH ×2 (07:50→22:00)
[2019-04-28] MEDS ORDERED: GABAPENTIN 300 MG CAP PO NR (08:00)
[2019-04-28] MEDS ORDERED: MIDAZOLAM 2 MG/2 ML INJ IV NR (08:00)
[2019-04-28] MEDS ORDERED: CELECOXIB 200 MG CAP PO NR (08:00)
[2019-04-28] MEDS ORDERED: HYDROCORTISONE SOD SUCC 100 MG/2 ML VIAL ONE (08:18)
[2019-04-28] MEDS ORDERED: TRANEXAMIC ACID 1,000 MG/10 ML IV ONE (08:47)
[2019-04-28] MEDS ORDERED: CITRIC ACID-SOD CITRATE 500 ML IV ONE (08:55)
[2019-04-28] MEDS ORDERED: KETOROLAC 30 MG/1 ML INJ IV ONE (10:10)
[2019-04-28] MEDS ORDERED: SODIUM CHLORIDE 0.9% 50 ML IVPB IV ONE (10:10)
[2019-04-28] MEDS ORDERED: GLYCOPYRROLATE 0.4 MG/2 ML INJ ONE (10:12)
[2019-04-28] MEDS ORDERED: PHENYLEPHRINE/NS 1,000 MCG/10 ML SYRINGE (OR USE) IV ONE ×2 (10:12)
[2019-04-28] MEDS ORDERED: MAGNESIUM HYDROXIDE (MOM) ORAL LIQD UDC PO PRN (10:33)
[2019-04-28] MEDS ORDERED: ZOLPIDEM 5 MG TAB PO PRN (10:33)
--- NOTE | 2019-04-28 10:43 | Procedure Note ---
Date of procedure: 04/28/19 Pre-op diagnosis: severe arthritis left hip Post-op diagnosis: same Procedure: Left total hip replacement Procedure The patient was brought to the OR and placed in the OR table in the supine position following induction intubation by anesthesia the patient's was turned into the right lateral decubitus position care was taken to protect the bony areas and a axillary roll was used and the left axilla. Left hip and thigh were then prepped and draped in the usual sterile manner. A timeout procedure was done to identify the patient and the correct operative site. Using the lateral approach incision was taken down through skin and subcutaneous the fascia eloy was incised A Charnley retractor was placed deep within the wound care was taken to enter the anterior hip capsule by the vastus lateralis and the gluteus medius tendons in the knee was flexed and internally rotated which brought us upon the anterior portion of the hip joint using a small broach and osteotomy was performed on the femoral neck approximately 2 cm to centimeters proximal to the lesser trochanter. Using Jang retractors the the acetabular structures were evaluated the patient was noted to have some moderate changes within the acetabulum reaming was begun starting with a 45 mm diameter and advancing up to a 51 mm cup was taken to the observed bleeding bone within the acetabulum nicely 52 mm cup was inserted care was taken to maintain the proper v ersion that being 45 abduction and 20 of anteversion and a small screw was used to stabilize this acetabular component next attention was turned to the proximal femur using a cookie cutter and the proximal femoral canal was entered this was then reamed and broached to a #0 stem And the hip joint was then reduced using a 30 neutral neck and a 32 mm head hip was reduced taken through a range of motion and was found to be stable Trial component was removed and the hip joint was then copiously irrigated the final components were inserted that being a #0 femoral stem with a 32 mm head again the hip joint was reduced and was taken through a range of motion and found stable. He was closed in a standard routine fashion. Dressings were applied the patient tolerated the procedure and there were no complications he was taken to postanesthesia recovery stable Anesthesia: GETA Surgeon: BRENDA FRANKLIN Six Horse Hitch Driver: DEANNA MUNOZ Estimated blood loss: other (350 mL) Pathology: list (left femoral head) Specimen disposition: to lab Condition: stable Disposition: PACU
[2019-04-28] MEDS: HYDROmorphone 1 MG/1 ML INJ IV PRN ×2 (11:14→22:00)
[2019-04-28] MEDS ORDERED: HYPROMELLOSE 0.5% OPHTH SOLN 15 ML OU PRN (15:54)
[2019-04-28] MEDS: MORPHINE 4 MG/1 ML INJ IV PRN (17:45)
--- NOTE | 2019-04-28 21:24 | Anesthesia Day of Surgery ---
Anesthesia Day of Surgery - Day of Surgery Patient Examined: Yes Patient H&P Reviewed: Yes Patient is NPO: Yes
[2019-04-29] MEDS: LACTATED RINGERS 1,000 ML IV SCH ×2 (04:53→17:54)
[2019-04-29] MEDS: MORPHINE 4 MG/1 ML INJ IV PRN ×3 (04:55→17:53)
[2019-04-29] MEDS: HYDROcodone/ACETAMINOPHEN 5-325 MG TAB PO PRN ×3 (06:34→23:19)
[2019-04-29] MEDS: ENOXAPARIN 40 MG/0.4 ML INJ SUB-Q SCH (10:06)
[2019-04-29 10:35] LABS: Hematocrit 31.7 % (30.3-42.9); Hemoglobin 10.4 gm/dl (10.1-14.3)
--- NOTE | 2019-04-29 11:07 | Consultation ---
History of Present Illness - Reason for Consult Consult date: 04/29/19 medical management of hypertension - History of Present Illness Patient is a 63-year-old -[place] female with history of HTN, hypothyroidism and rheumatoid arthritis who was admitted post left total hip replacement, POD #1. A consult was placed for medical management. Patient complained of nausea without vomiting. She reported her pain was currently controlled. She denies chest pain, shortness of breath, palpitation, cough, fever or chills. No headaches, dizziness, abdominal pain, constipation, diarrhea, syncope or loss of consciousness. Past History Past Medical History: arthritis, hypertension, hypothyroidism, other (rheumatoid arthritis, tinnitus, urinary incontinence, RT foot drop, breast cancer status post right mastectomy and chemotherapy) Past Surgical History: Other (laminectomy, right mastectomy, right heel surgery) Social history: no significant social history (patient denies tobacco, alcohol or illicit drug use) Family history: other (A sister from breast cancer in her 60's) Medications and Allergies Allergies Allergy/AdvReac Type Severity Reaction Status Date / Time codeine AdvReac Vomiting, Verified 06/13/16 10:19 headaches Home Medications Medication Instructions Recorded Confirmed Last Taken Type Albuterol Sulfate [Ventolin HFA] 2 puff IH Q4-6H PRN 06/13/16 04/28/19 04/21/19 09:00 History Bisoprolol/Hctz [Ziac 10-6.25] 1 each PO DAILY 06/13/16 04/28/19 04/28/19 04:00 History Etodolac [Etodolac ER] 500 mg PO BID 06/13/16 04/28/19 04/27/19 12:00 History Levothyroxine Sodium 137 mcg PO QAM 06/13/16 04/28/19 04/27/19 09:00 History [Levothyroxine] Losartan [Cozaar] 100 mg PO QDAY 06/13/16 04/28/19 04/28/19 04:00 History methylPREDNISolone [Medrol] 8 mg PO QDAY 06/13/16 04/28/19 04/27/19 12:00 History HYDROcodone/APAP 5-325 [[place] 1 each PO Q6HR PRN #20 tablet 09/08/16 04/28/19 04/27/19 20:00 Rx 5/325] Gabapentin [Neurontin] 300 mg PO TID 04/21/19 04/28/19 04/28/19 04:00 History Hydroxychloroquine [Plaquenil] 200 mg PO BID 04/21/19 04/28/19 04/27/19 12:00 History Ketorolac Tromethamin 0.4%(Nf) 4 drop OP DAILY 04/21/19 04/28/19 04/28/19 04:00 History [Acular Ls 0.4% Ophth Randi] Loratadine [Claritin] 10 mg PO DAILY 04/21/19 04/28/19 04/27/19 14:00 History Peg 400/Hypromellose/Glycerin [Hm 1 drop OP PRN PRN 04/21/19 04/28/19 04/28/19 04:00 History Dry Eye Relief Eye Drops] Solifenacin Succinate [Vesicare] 10 mg PO DAILY 04/21/19 04/28/19 04/28/19 04:00 History Turmeric Root Extract [Turmeric] 2 tab PO DAILY 04/21/19 04/28/19 04/21/19 09:00 History Active Meds: Active Medications Acetaminophen/Hydrocodone Bitart ([place] 5/325) 1 each PO Q6H PRN PRN Reason: Pain, Moderate (4-6) Last Admin: 04/29/19 06:34 Dose: 1 each Documented by: Artificial Tears (Isopto Tears 0.5%) 2 drops OU Q4H PRN PRN Reason: Dry Eye(s) Enoxaparin Sodium (Enoxaparin) 40 mg SUB-Q QDAY [facility] Last Admin: 04/29/19 10:06 Dose: 40 mg Documented by: Lactated Ringer's (Lactated Ringers) 1,000 mls @ 100 mls/hr IV DIRECT [facility] Last Admin: 04/29/19 04:53 Dose: 100 mls/hr Documented by: Magnesium Hydroxide (Milk Of Magnesia) 30 ml PO Q4H PRN PRN Reason: Constipation Morphine Sulfate (Morphine) 4 mg IV Q4H PRN PRN Reason: Pain , Severe (7-10) Last Admin: 04/29/19 10:32 Dose: 4 mg Documented by: Ondansetron HCl (Zofran) 4 mg IV Q8H PRN PRN Reason: Nausea And Vomiting Sodium Chloride (Sodium Chloride Flush Syringe 10 Ml) 10 ml IV PRN PRN PRN Reason: flush Sodium Chloride (Sodium Chloride Flush Syringe 10 Ml) 10 ml IV PRN NR Stop: 05/01/19 10:59 Zolpidem Tartrate (Ambien) 5 mg PO QHS PRN PRN Reason: Sleep Review of Systems All systems: negative (all other systems reviewed with the patient and are negative unless otherwise stated above) Exam - Constitutional Vitals: Temp Pulse Resp BP Pulse Ox 99.3 F 89 18 98/49 96 04/29/19 07:46 04/29/19 07:46 04/29/19 07:46 04/29/19 07:46 04/29/19 10:42 General appearance: Present: no acute distress, obese - EENT Eyes: Present: PERRL, EOM intact ENT: hearing intact, clear oral mucosa - Neck Neck: Present: supple, normal ROM - Respiratory Respiratory effort: normal Respiratory: bilateral: CTA - Cardiovascular Rhythm: regular Heart Sounds: Present: S1 & S2. Absent: rub, click - Extremities Extremity abnormal: edema (trace edema in bilateral lower extremities) Peripheral Pulses: within normal limits - Abdominal General gastrointestinal: Present: soft, non-tender, non-distended, normal bowel sounds Female genitourinary: Present: deferred - Integumentary Integumentary: Present: clear, warm, dry - Musculoskeletal Musculoskeletal: gait normal, strength equal bilaterally - Psychiatric Psychiatric: appropriate mood/affect, intact judgment & insight - Neurologic Neurologic: moves all extremities Results - Labs CBC & Chem 7: 04/29/19 09:18 04/25/19 11:15 Assessment and Plan Hypertension -Blood pressure currently low normal -We'll hold her home antihypertensive -We'll monitor blood pressure Hypothyroidism -We will resume her home synthroid Hypokalemia and hypernatremia on 04/25/19 -We'll repeat labs Rheumatoid arthritis -Continue home medications History of breast cancer status post right mastectomy on chemotherapy Morbid obesity with BMI of 41.5 -Lifestyle modification recommended Thank you for the consult, we will continue to follow the patient Time spent: 38 minutes
[2019-04-29] MEDS ORDERED: FLU VACC QUAD 2019-20 (3 YR UP)/PF 60 MCG/0.5 ML SYRINGE IM ONE (12:00)
--- NOTE | 2019-04-29 13:05 | Progress Note ---
Assessment and Plan s/p left THR post op day 1 doing ok, PT started most likely require SNF upon dc Subjective Date of service: 04/29/19 Interval history: c/o left hip pain...also c/o left calf pain Objective Vital signs: Vital Signs - 12hr 04/29/19 04/29/19 04/29/19 04:36 06:22 07:46 Temperature 99.4 F 98.1 F 99.3 F Pulse Rate 90 84 89 Respiratory 20 16 18 Rate Blood Pressure 93/56 98/49 Blood Pressure 110/62 [Right] O2 Sat by Pulse 98 99 98 Oximetry 04/29/19 10:42 Temperature Pulse Rate Respiratory Rate Blood Pressure Blood Pressure [Right] O2 Sat by Pulse 96 Oximetry Narrative Exam: left LE - hip - incision dressing clean and dry, moderate swelling leg - mild swelling tender at calf, distal n/v intact - Labs CBC & BMP: 04/29/19 09:18 04/25/19 11:15
[2019-04-29] MEDS: ONDANSETRON 4 MG/2 ML INJ IV PRN (13:17)
[2019-04-29] MEDS ORDERED: GLYCERIN OP PRN (14:00)
[2019-04-29] MEDS ORDERED: PEG OP PRN (14:00)
[2019-04-29] MEDS ORDERED: HYPROMELLOSE OP PRN (14:00)
[2019-04-29] MEDS ORDERED: SOLIFENACIN SUCCINATE 10 MG PO SCH (14:15)
--- NOTE | 2019-04-29 14:27 | Vascular Lab Report ---
DUPLEX DOPPLER LEFT LOWER EXTREMITY VEINS INDICATION: left calf pain and swelling FINDINGS: There is no thrombus within the deep veins of the left lower extremity from the common femoral to the calf veins. There is normal compression and augmentation on spectral analysis. IMPRESSION: No sonographic evidence for DVT in the left lower extremity. Signer Name: Brian Serrano MD Signed: 04/29/2019 2:23 PM Workstation Name: [id number]
[2019-04-29] MEDS: GABAPENTIN 300 MG CAP PO SCH ×2 (14:40→22:08)
--- NOTE | 2019-04-29 14:40 | XRay Report ---
Left hip 2 views Indication: Left hip pain Findings: Left total hip arthroplasty has been performed with satisfactory postoperative radiograph appearance. No fracture or subluxation. Signer Name: Brian Serrano MD Signed: 04/29/2019 2:35 PM Workstation Name: [id number]
[2019-04-29 16:06] LABS: BUN/Creatinine Ratio 16; Blood Urea Nitrogen 16 mg/dL (7-17); Calcium 8.6 mg/dL (8.4-10.2); Hemolysis Index 4
[2019-04-29] MEDS: LORATADINE (NF) 10 MG TAB PO SCH (17:18)
[2019-04-29] MEDS: HYDROXYCHLOROQUINE 200 MG TAB PO SCH ×2 (17:18→22:08)
[2019-04-30] MEDS: LEVOTHYROXINE 112 MCG TAB PO SCH (06:14)
[2019-04-30] MEDS: LEVOTHYROXINE 25 MCG TAB PO SCH (06:14)
[2019-04-30] MEDS: HYDROcodone/ACETAMINOPHEN 5-325 MG TAB PO PRN ×2 (06:24→18:32)
[2019-04-30] MEDS: LACTATED RINGERS 1,000 ML IV SCH ×2 (06:27→18:33)
[2019-04-30] MEDS: LORATADINE (NF) 10 MG TAB PO SCH (09:25)
[2019-04-30] MEDS: GABAPENTIN 300 MG CAP PO SCH ×3 (09:25→21:03)
[2019-04-30] MEDS: HYDROXYCHLOROQUINE 200 MG TAB PO SCH (09:25)
[2019-04-30] MEDS: OXYBUTYNIN 5 MG TAB PO SCH ×3 (09:25→21:03)
[2019-04-30] MEDS: ENOXAPARIN 40 MG/0.4 ML INJ SUB-Q SCH (09:25)
[2019-04-30] MEDS ORDERED: LEVOTHYROXINE SODIUM 137 MCG PO SCH (10:00)
[2019-04-30] MEDS: MORPHINE 4 MG/1 ML INJ IV PRN (11:20)
[2019-04-30 13:04] LABS: Bacteria,Urine 1+ /HPF (Negative); Bilirubin,Urine NEG (Negative); Blood,Urine NEG (Negative); Color,Urine Yellow (Yellow); Protein,Urine <15 mg/dL mg/dL (Negative); Urobilinogen,Urine < 2.0 mg/dL (<2.0)
--- NOTE | 2019-04-30 14:29 | Progress Note ---
Assessment and Plan Assessment and plan: SIRS evidenced gy HR>90 and fever -Exact source of infection unknown -Urinalysis negative. Chest x-ray neg -Left lower extremity on 04/29 negative for DVT -Blood cultures pending Hypertension -Blood pressure stable S/p Left knee replacement, POD#2 -mgx by surgery team Hypothyroidism, stable -cont home synthroid Hypokalemia and hypernatremia on 04/25/19 -resolved Rheumatoid arthritis -Continue home medications Urinary incontinence -Continue oxybutynin History of breast cancer status post right mastectomy on chemotherapy Morbid obesity with BMI of 41.5 -Lifestyle modification recommended DVT prophylaxis: Lovenox Disposition: d/c per clinical course History Interval history: Patient has no new complaints. She had fever overnight. Hospitalist Physical - Constitutional Vitals: Temp Pulse Resp BP Pulse Ox 99.5 F 103 H 20 122/63 100 04/30/19 11:26 04/30/19 11:00 04/30/19 11:26 04/30/19 11:26 04/30/19 11:00 General appearance: Present: no acute distress, obese - EENT Eyes: Present: PERRL, EOM intact ENT: hearing intact, clear oral mucosa - Neck Neck: Present: supple - Respiratory Respiratory effort: normal Respiratory: bilateral: diminished, negative: rhonchi, wheezing - Cardiovascular Rhythm: regular (with tachycardia) Heart Sounds: Present: S1 & S2 - Extremities Extremity abnormal: edema (in BLE) - Abdominal General gastrointestinal: soft, non-tender, normal bowel sounds - Integumentary Integumentary: Present: warm, dry - Psychiatric Psychiatric: appropriate mood/affect - Neurologic Neurologic: moves all extremities Results - Labs CBC & Chem 7: 04/29/19 09:18 04/29/19 15:36 Labs: Laboratory Last Values WBC 5.4 K/mm3 (4.5-11.0) 04/25/19 11:15 RBC 4.16 M/mm3 (3.65-5.03) 04/25/19 11:15 Hgb 10.4 gm/dl (10.1-14.3) 04/29/19 09:18 Hct 31.7 % (30.3-42.9) 04/29/19 09:18 MCV 94 fl (79-97) 04/25/19 11:15 MCH 31 pg (28-32) 04/25/19 11:15 MCHC 33 % (30-34) 04/25/19 11:15 RDW 15.1 % (13.2-15.2) 04/25/19 11:15 Plt Count 245 K/mm3 (140-440) 04/25/19 11:15 Lymph % (Auto) 44.6 % (13.4-35.0) H 04/25/19 11:15 [place] % (Auto) 12.2 % (0.0-7.3) H 04/25/19 11:15 Eos % (Auto) 0.7 % (0.0-4.3) 04/25/19 11:15 Baso % (Auto) 0.4 % (0.0-1.8) 04/25/19 11:15 Lymph # 2.4 K/mm3 (1.2-5.4) 04/25/19 11:15 [place] # 0.7 K/mm3 (0.0-0.8) 04/25/19 11:15 Eos # 0.0 K/mm3 (0.0-0.4) 04/25/19 11:15 Baso # 0.0 K/mm3 (0.0-0.1) 04/25/19 11:15 Seg Neutrophils % 42.1 % (40.0-70.0) 04/25/19 11:15 Seg Neutrophils # 2.3 K/mm3 (1.8-7.7) 04/25/19 11:15 Sodium 144 mmol/L (137-145) 04/29/19 15:36 Potassium 3.8 mmol/L (3.6-5.0) D 04/29/19 15:36 Chloride 103.7 mmol/L (98-107) 04/29/19 15:36 Carbon Dioxide 28 mmol/L (22-30) 04/29/19 15:36 Anion Gap 16 mmol/L 04/29/19 15:36 BUN 16 mg/dL (7-17) 04/29/19 15:36 Creatinine 1.0 mg/dL (0.7-1.2) 04/29/19 15:36 Estimated GFR > 60 ml/min 04/29/19 15:36 BUN/Creatinine Ratio 16 % 04/29/19 15:36 Glucose 121 mg/dL (65-100) H 04/29/19 15:36 Calcium 8.6 mg/dL (8.4-10.2) 04/29/19 15:36 Magnesium 1.80 mg/dL (1.7-2.3) 04/29/19 15:36 Total Bilirubin 0.70 mg/dL (0.1-1.2) 04/25/19 11:15 AST 21 units/L (5-40) 04/25/19 11:15 ALT 20 units/L (7-56) 04/25/19 11:15 Alkaline Phosphatase 44 units/L (35-129) 04/25/19 11:15 Total Protein 6.4 g/dL (6.3-8.2) 04/25/19 11:15 Albumin 4.0 g/dL (3.9-5) 04/25/19 11:15 Albumin/Globulin Ratio 1.7 % 04/25/19 11:15 Urine Color Yellow (Yellow) 04/30/19 11:15 Urine Turbidity Clear (Clear) 04/30/19 11:15 Urine pH 5.0 (5.0-7.0) 04/30/19 11:15 Ur Specific [place] 1.014 (1.003-1.030) 04/30/19 11:15 Urine Protein <15 mg/dl mg/dL (Negative) 04/30/19 11:15 Urine Glucose (UA) Neg mg/dL (Negative) 04/30/19 11:15 Urine Ketones Neg mg/dL (Negative) 04/30/19 11:15 Urine Blood Neg (Negative) 04/30/19 11:15 Urine Nitrite Neg (Negative) 04/30/19 11:15 Urine Bilirubin Neg (Negative) 04/30/19 11:15 Urine Urobilinogen < 2.0 mg/dL (<2.0) 04/30/19 11:15 Ur Leukocyte Esterase Tr (Negative) 04/30/19 11:15 Urine WBC (Auto) 1.0 /HPF (0.0-6.0) 04/30/19 11:15 Urine RBC (Auto) 2.0 /HPF (0.0-6.0) 04/30/19 11:15 Urine Bacteria (Auto) 1+ /HPF (Negative) 04/30/19 11:15 Blood Type O POSITIVE 04/28/19 07:10 Antibody Screen Negative 04/28/19 07:10 Active Medications - Current Medications Current Medications: Generic Name Dose Route Start Last Admin Trade Name Freq PRN Reason Stop Dose Admin Acetaminophen/Hydrocodone Bitart 1 each 04/28/19 10:33 04/30/19 06:24 [place] 5/325 PO 1 each Q6H PRN Administration Pain, Moderate (4-6) Artificial Tears 2 drops 04/28/19 15:54 Isopto Tears 0.5% OU Q4H PRN Dry Eye(s) Enoxaparin Sodium 40 mg 04/29/19 10:00 04/30/19 09:25 Enoxaparin SUB-Q 40 mg QDAY SYDNI Administration Gabapentin 300 mg 04/29/19 14:00 04/30/19 09:25 Gabapentin PO 300 mg TID SYDNI Administration Hydroxychloroquine Sulfate 200 mg 04/29/19 15:00 04/30/19 09:25 Plaquenil PO 200 mg BID SYDNI Administration Lactated Ringer's 1,000 mls @ 100 mls/hr 04/28/19 08:00 04/30/19 06:27 Lactated Ringers IV 100 mls/hr DIRECT SYDNI Administration Levothyroxine Sodium 112 mcg 04/30/19 06:00 04/30/19 06:14 Synthroid PO 112 mcg DAILY@0600 SYDNI Administration Levothyroxine Sodium 25 mcg 04/30/19 06:00 04/30/19 06:14 Synthroid PO 25 mcg DAILY@0600 SYDNI Administration Loratadine 10 mg 04/29/19 15:00 04/30/19 09:25 Claritin PO 10 mg DAILY SYDNI Administration Magnesium Hydroxide 30 ml 04/28/19 10:33 Milk Of Magnesia PO Q4H PRN Constipation Miscellaneous Medication 1 drop 04/29/19 14:00 Peg 400/Hypromellose/Glycerin [Hm Dry Eye Relief Eye Drops] OP PRN PRN Dry Eye(s) Morphine Sulfate 4 mg 04/28/19 10:33 04/30/19 11:20 Morphine IV 4 mg Q4H PRN Administration Pain , Severe (7-10) Ondansetron HCl 4 mg 04/29/19 11:30 04/29/19 13:17 Zofran IV 4 mg Q8H PRN Administration Nausea And Vomiting Oxybutynin Chloride 5 mg 04/30/19 08:00 04/30/19 09:25 Ditropan PO 5 mg TID SYDNI Administration Sodium Chloride 10 ml 04/28/19 11:00 Sodium Chloride Flush Syringe 10 Ml IV PRN PRN flush Sodium Chloride 10 ml 04/28/19 11:00 Sodium Chloride Flush Syringe 10 Ml IV 05/01/19 10:59 PRN NR Zolpidem Tartrate 5 mg 04/28/19 10:33 Ambien PO QHS PRN Sleep
--- NOTE | 2019-04-30 15:07 | XRay Report ---
CHEST 1 VIEW INDICATION / CLINICAL INFORMATION: fever. COMPARISON: None available. FINDINGS: HEART / MEDIASTINUM: Normal cardiomediastinal silhouette allowing for AP technique and low lung volum es. LUNGS / PLEURA: Pulmonary hypoinflation with elevation of the diaphragm and crowding of bronchovascul ar markings. No parenchymal consolidation or identifiable pleural fluid. No pneumothorax. IMPRESSION: 1. No acute finding. Signer Name: Eugenio Gutierrez MD Signed: 04/30/2019 3:03 PM Workstation Name: [id number]
[2019-05-01] MEDS: HYDROXYCHLOROQUINE 200 MG TAB PO SCH ×3 (00:07→21:22)
[2019-05-01] MEDS: HYDROcodone/ACETAMINOPHEN 5-325 MG TAB PO PRN ×3 (02:45→17:36)
[2019-05-01] MEDS: LACTATED RINGERS 1,000 ML IV SCH (04:45)
[2019-05-01] MEDS: LEVOTHYROXINE 25 MCG TAB PO SCH (05:26)
[2019-05-01] MEDS: LEVOTHYROXINE 112 MCG TAB PO SCH (05:26)
[2019-05-01 06:22] LABS: Basophils % (Auto) 0.4 % (0.0-1.8); Eosinophils # (Auto) 0.1 K/mm3 (0.0-0.4); Eosinophils % (Auto) 1.2 % (0.0-4.3); Hematocrit 30.3 % (30.3-42.9); Hemoglobin 9.9 gm/dl (10.1-14.3); Lymphocytes # (Auto) 1.6 K/mm3 (1.2-5.4); Lymphocytes % (Auto) 23.9 % (13.4-35.0); Mean Corpuscular HGB Conc 33 % (30-34); Mean Corpuscular Volume 95 fl (79-97); Monocytes # (Auto) 0.9 K/mm3 (0.0-0.8); Monocytes % (Auto) 13.7 % (0.0-7.3); Platelet Count 184 K/mm3 (140-440); Red Cell Distribution Width 14.5 % (13.2-15.2)
[2019-05-01 06:43] LABS: BUN/Creatinine Ratio 10; Blood Urea Nitrogen 6 mg/dL (7-17); Calcium 8.6 mg/dL (8.4-10.2); Hemolysis Index 17
[2019-05-01] MEDS: ENOXAPARIN 40 MG/0.4 ML INJ SUB-Q SCH (09:25)
[2019-05-01] MEDS: GABAPENTIN 300 MG CAP PO SCH ×3 (09:25→19:58)
[2019-05-01] MEDS: LORATADINE (NF) 10 MG TAB PO SCH (09:25)
[2019-05-01] MEDS: atenoloL 25 MG TAB PO SCH (09:25)
[2019-05-01] MEDS: OXYBUTYNIN 5 MG TAB PO SCH ×3 (09:25→19:58)
[2019-05-01] MEDS: POTASSIUM CHLORIDE ER 20 MEQ TAB PO SCH (09:25)
[2019-05-01] MEDS ORDERED: ALBUTEROL 2.5 MG/3 ML NEBU IH PRN (09:58)
--- NOTE | 2019-05-01 10:01 | Progress Note ---
Assessment and Plan Assessment and plan: SIRS evidenced by HR>90 and fever -Exact source of infection unknown -Urinalysis negative. Chest x-ray neg -Left lower extremity on 04/29 negative for DVT -Blood cultures pending LUE/RLE swelling -Venous duplex US to assess for DVT Hypertension -Blood pressure stable S/p Left knee replacement, POD#3 -mgx by surgery team Acute blood loss anemia, post opt -H/H stable -Monitor and transfuse for hb<7 Hypothyroidism, stable -cont home synthroid Hypokalemia -On repletion, will monitor level -We'll check magnesium Rheumatoid arthritis -Continue home medications Urinary incontinence -Continue oxybutynin History of breast cancer status post right mastectomy on chemotherapy Morbid obesity with BMI of 41.5 -Lifestyle modification recommended DVT prophylaxis: Lovenox Disposition: d/c per clinical course History Interval history: No fever overnight. Patient has left upper extremity swelling due to IV line placement Hospitalist Physical - Constitutional Vitals: Temp Pulse Resp BP Pulse Ox 98.4 F 112 H 18 105/53 100 05/01/19 04:42 05/01/19 04:42 05/01/19 04:42 05/01/19 04:42 05/01/19 08:32 General appearance: Present: no acute distress, obese - EENT Eyes: Present: PERRL, EOM intact ENT: hearing intact, clear oral mucosa - Neck Neck: Present: supple - Respiratory Respiratory effort: normal Respiratory: bilateral: CTA - Cardiovascular Rhythm: regular (with tachycardia) Heart Sounds: Present: S1 & S2 - Extremities Extremity abnormal: edema (in BLE) - Abdominal General gastrointestinal: soft, non-tender, normal bowel sounds - Integumentary Integumentary: Present: warm, dry - Psychiatric Psychiatric: cooperative - Neurologic Neurologic: moves all extremities Results - Labs CBC & Chem 7: 05/01/19 05:37 05/01/19 05:37 Labs: Laboratory Last Values WBC 6.5 K/mm3 (4.5-11.0) 05/01/19 05:37 RBC 3.20 M/mm3 (3.65-5.03) L 05/01/19 05:37 Hgb 9.9 gm/dl (10.1-14.3) L 05/01/19 05:37 Hct 30.3 % (30.3-42.9) 05/01/19 05:37 MCV 95 fl (79-97) 05/01/19 05:37 MCH 31 pg (28-32) 05/01/19 05:37 MCHC 33 % (30-34) 05/01/19 05:37 RDW 14.5 % (13.2-15.2) 05/01/19 05:37 Plt Count 184 K/mm3 (140-440) 05/01/19 05:37 Lymph % (Auto) 23.9 % (13.4-35.0) 05/01/19 05:37 [place] % (Auto) 13.7 % (0.0-7.3) H 05/01/19 05:37 Eos % (Auto) 1.2 % (0.0-4.3) 05/01/19 05:37 Baso % (Auto) 0.4 % (0.0-1.8) 05/01/19 05:37 Lymph # 1.6 K/mm3 (1.2-5.4) 05/01/19 05:37 [place] # 0.9 K/mm3 (0.0-0.8) H 05/01/19 05:37 Eos # 0.1 K/mm3 (0.0-0.4) 05/01/19 05:37 Baso # 0.0 K/mm3 (0.0-0.1) 05/01/19 05:37 Seg Neutrophils % 60.8 % (40.0-70.0) 05/01/19 05:37 Seg Neutrophils # 4.0 K/mm3 (1.8-7.7) 05/01/19 05:37 Sodium 141 mmol/L (137-145) 05/01/19 05:37 Potassium 3.4 mmol/L (3.6-5.0) L 05/01/19 05:37 Chloride 102.2 mmol/L (98-107) 05/01/19 05:37 Carbon Dioxide 24 mmol/L (22-30) 05/01/19 05:37 Anion Gap 18 mmol/L 05/01/19 05:37 BUN 6 mg/dL (7-17) L 05/01/19 05:37 Creatinine 0.6 mg/dL (0.7-1.2) L 05/01/19 05:37 Estimated GFR > 60 ml/min 05/01/19 05:37 BUN/Creatinine Ratio 10 % 05/01/19 05:37 Glucose 92 mg/dL (65-100) 05/01/19 05:37 Calcium 8.6 mg/dL (8.4-10.2) 05/01/19 05:37 Magnesium 1.80 mg/dL (1.7-2.3) 04/29/19 15:36 Total Bilirubin 0.70 mg/dL (0.1-1.2) 04/25/19 11:15 AST 21 units/L (5-40) 04/25/19 11:15 ALT 20 units/L (7-56) 04/25/19 11:15 Alkaline Phosphatase 44 units/L (35-129) 04/25/19 11:15 Total Protein 6.4 g/dL (6.3-8.2) 04/25/19 11:15 Albumin 4.0 g/dL (3.9-5) 04/25/19 11:15 Albumin/Globulin Ratio 1.7 % 04/25/19 11:15 Urine Color Yellow (Yellow) 04/30/19 11:15 Urine Turbidity Clear (Clear) 04/30/19 11:15 Urine pH 5.0 (5.0-7.0) 04/30/19 11:15 Ur Specific [place] 1.014 (1.003-1.030) 04/30/19 11:15 Urine Protein <15 mg/dl mg/dL (Negative) 04/30/19 11:15 Urine Glucose (UA) Neg mg/dL (Negative) 04/30/19 11:15 Urine Ketones Neg mg/dL (Negative) 04/30/19 11:15 Urine Blood Neg (Negative) 04/30/19 11:15 Urine Nitrite Neg (Negative) 04/30/19 11:15 Urine Bilirubin Neg (Negative) 04/30/19 11:15 Urine Urobilinogen < 2.0 mg/dL (<2.0) 04/30/19 11:15 Ur Leukocyte Esterase Tr (Negative) 04/30/19 11:15 Urine WBC (Auto) 1.0 /HPF (0.0-6.0) 04/30/19 11:15 Urine RBC (Auto) 2.0 /HPF (0.0-6.0) 04/30/19 11:15 Urine Bacteria (Auto) 1+ /HPF (Negative) 04/30/19 11:15 Blood Type O POSITIVE 04/28/19 07:10 Antibody Screen Negative 04/28/19 07:10 Active Medications - Current Medications Current Medications: Generic Name Dose Route Start Last Admin Trade Name Freq PRN Reason Stop Dose Admin Acetaminophen/Hydrocodone Bitart 1 each 04/28/19 10:33 05/01/19 02:45 [place] 5/325 PO 1 each Q6H PRN Administration Pain, Moderate (4-6) Artificial Tears 2 drops 04/28/19 15:54 Isopto Tears 0.5% OU Q4H PRN Dry Eye(s) Atenolol 25 mg 05/01/19 10:00 05/01/19 09:25 Tenormin PO 25 mg QDAY SYDNI Administration Enoxaparin Sodium 40 mg 04/29/19 10:00 05/01/19 09:25 Enoxaparin SUB-Q 40 mg QDAY SYDNI Administration Gabapentin 300 mg 04/29/19 14:00 05/01/19 09:25 Gabapentin PO 300 mg TID SYDNI Administration Hydroxychloroquine Sulfate 200 mg 04/29/19 15:00 05/01/19 09:25 Plaquenil PO 200 mg BID SYDNI Administration Lactated Ringer's 1,000 mls @ 100 mls/hr 04/28/19 08:00 05/01/19 04:45 Lactated Ringers IV 100 mls/hr DIRECT SYDNI Administration Levothyroxine Sodium 112 mcg 04/30/19 06:00 05/01/19 05:26 Synthroid PO 112 mcg DAILY@0600 SYDNI Administration Levothyroxine Sodium 25 mcg 04/30/19 06:00 05/01/19 05:26 Synthroid PO 25 mcg DAILY@0600 SYDNI Administration Loratadine 10 mg 04/29/19 15:00 05/01/19 09:25 Claritin PO 10 mg DAILY SYDNI Administration Magnesium Hydroxide 30 ml 04/28/19 10:33 Milk Of Magnesia PO Q4H PRN Constipation Miscellaneous Medication 1 drop 04/29/19 14:00 Peg 400/Hypromellose/Glycerin [Hm Dry Eye Relief Eye Drops] OP PRN PRN Dry Eye(s) Morphine Sulfate 4 mg 04/28/19 10:33 04/30/19 11:20 Morphine IV 4 mg Q4H PRN Administration Pain , Severe (7-10) Ondansetron HCl 4 mg 04/29/19 11:30 04/29/19 13:17 Zofran IV 4 mg Q8H PRN Administration Nausea And Vomiting Oxybutynin Chloride 5 mg 04/30/19 08:00 05/01/19 09:25 Ditropan PO 5 mg TID SYDNI Administration Potassium Chloride 40 meq 05/01/19 10:00 05/01/19 09:25 [place] PO 05/02/19 10:01 40 meq QDAY SYDNI Administration Sodium Chloride 10 ml 04/28/19 11:00 Sodium Chloride Flush Syringe 10 Ml IV PRN PRN flush Sodium Chloride 10 ml 04/28/19 11:00 Sodium Chloride Flush Syringe 10 Ml IV 05/01/19 10:59 PRN NR Zolpidem Tartrate 5 mg 04/28/19 10:33 05/01/19 02:45 Ambien PO 5 mg QHS PRN Administration Sleep
[2019-05-02] MEDS: LEVOTHYROXINE 112 MCG TAB PO SCH (05:01)
[2019-05-02] MEDS: LEVOTHYROXINE 25 MCG TAB PO SCH (05:01)
[2019-05-02] MEDS ORDERED: ACETAMINOPHEN 325 MG TAB PO PRN (05:24)
[2019-05-02 07:05] LABS: BUN/Creatinine Ratio 7; Blood Urea Nitrogen 5 mg/dL (7-17); Calcium 8.6 mg/dL (8.4-10.2)
[2019-05-02 07:06] LABS: Hemolysis Index 2
[2019-05-02] MEDS: OXYBUTYNIN 5 MG TAB PO SCH ×2 (08:14→14:20)
[2019-05-02] MEDS: GABAPENTIN 300 MG CAP PO SCH ×2 (08:14→14:20)
[2019-05-02] MEDS: POTASSIUM CHLORIDE ER 20 MEQ TAB PO SCH (09:19)
[2019-05-02] MEDS: atenoloL 25 MG TAB PO SCH (09:19)
[2019-05-02] MEDS: ONDANSETRON 4 MG/2 ML INJ IV PRN (09:19)
[2019-05-02] MEDS: HYDROcodone/ACETAMINOPHEN 5-325 MG TAB PO PRN (09:19)
[2019-05-02] MEDS: ENOXAPARIN 40 MG/0.4 ML INJ SUB-Q SCH (09:20)
[2019-05-02] MEDS: HYDROXYCHLOROQUINE 200 MG TAB PO SCH (09:20)
[2019-05-02] MEDS: LORATADINE (NF) 10 MG TAB PO SCH (09:21)
--- NOTE | 2019-05-02 11:38 | Vascular Lab Report ---
LEFT UPPER EXTREMITY VENOUS DOPPLER ULTRASOUND HISTORY: Upper extremity pain and swelling. COMPARISON: None. TECHNIQUE: Grayscale, color and spectral Doppler imaging of the venous system of the left upper extre mity was performed. FINDINGS: Internal Jugular Vein: Normal grayscale appearance and flow. Subclavian Vein: Normal grayscale appearance and flow. Axillary Vein: Normal venous flow, compressibility and augmentation. Brachial vein: Normal venous flow, compressibility and augmentation. Radial vein: Normal venous flow, compressibility and augmentation. Ulnar vein: Normal venous flow, compressibility and augmentation. Additional Findings: The basilic and cephalic veins are patent. IMPRESSION: 1. No sonographic evidence of deep venous thrombosis in the left upper extremity. Signer Name: Twan Power Jr, MD Signed: 05/02/2019 11:34 AM Workstation Name: [id number]
--- NOTE | 2019-05-02 11:40 | Vascular Lab Report ---
DUPLEX DOPPLER LOWER EXTREMITY VEINS, RIGHT INDICATION: Right lower extremity edema. TECHNIQUE: Duplex doppler imaging was performed through the veins of the right lower extremity using venous compression and other maneuvers. COMPARISON: No relevant prior imaging study available. FINDINGS: Right Common femoral vein: Negative. Right Superficial femoral vein: Negative. Right Popliteal vein: Negative. Right Calf veins: Negative. Additional findings: There is moderate diffuse subcutaneous edema in the right lower extremity.. IMPRESSION: No sonographic evidence for DVT in the right lower extremity. Signer Name: Twan Power Jr, MD Signed: 05/02/2019 11:35 AM Workstation Name: [id number]
--- NOTE | 2019-05-02 13:01 | Progress Note ---
Assessment and Plan s/p left THR doing ok awaiting placement to SNF Subjective Date of service: 05/02/19 Interval history: feeling a little nauseous... Objective Vital signs: Vital Signs - 12hr 05/02/19 05/02/19 05/02/19 03:54 04:38 04:39 Temperature 101.3 F H Pulse Rate 110 H 110 H 110 H Respiratory 20 Rate Blood Pressure 126/71 Blood Pressure 153/73 [Right] O2 Sat by Pulse 96 96 Oximetry 05/02/19 05/02/19 05/02/19 04:41 05:52 07:09 Temperature 101.3 F H 97.9 F Pulse Rate 110 H 114 H Respiratory 20 18 22 Rate Blood Pressure 141/72 Blood Pressure 153/73 [Right] O2 Sat by Pulse 97 96 Oximetry 05/02/19 05/02/19 09:19 11:29 Temperature 100.0 F H Pulse Rate 110 H 101 H Respiratory 20 Rate Blood Pressure 153/73 123/68 Blood Pressure [Right] O2 Sat by Pulse 96 Oximetry Incision: healing, clean and dry Weight bearing status: as tolerated - Labs CBC & BMP: 05/01/19 05:37 05/02/19 05:52 Labs: Abnormal lab results 05/02/19 Range/Units 05:52 Potassium 3.5 L (3.6-5.0) mmol/L BUN 5 L (7-17) mg/dL Glucose 107 H (65-100) mg/dL
--- NOTE | 2019-05-02 14:22 | Discharge Summary ---
Providers - Providers Date of Admission: 04/28/19 05:59 Date of discharge: 05/02/19 Attending physician: BRENDA FRANKLIN MD 04/28/19 10:33 Consult to Case Management [CONS] Routine Services Needed at Discharge: Home Health Services DME Equipment Physical Therapy Notified:: RICH Phone number called:: [phone] Was contact made?: Yes If yes, spoke with:: LUCAS 04/28/19 10:35 Physical Therapy Evaluation and Treat [CONS] Routine Comment: Reason For Exam: post op evaluation Weight bearing status?: Full wt bearing Assistive devices?: Yes If so list: Walker 05/02/19 11:36 Consult to Wound/ET Nurse [CONS] Routine Reason For Exam: wound eval Primary care physician: JOVANNA GUADARRAMA Hospitalization Reason for admission: severe left hip pain Condition: Stable Procedures: Left total hip replacement Hospital course: 63-year-old female with a long history 63-year-old female with a long history of left hip pain and stiffness plain x-rays taken preoperatively showed severe osteoarthritis. Following admission to the hospital the patient was taken to the operating room where a left total hip replacement was done without complications postoperatively patient was seen and evaluated by physical therapy where she was given instructions on gait weightbearing. In addition case management services were also utilized for placement to a [facility] facility for postop rehabilitation. Disposition: / [facility] Core Measure Documentation - Palliative Care Palliative Care/ Comfort Measures: Not Applicable - Core Measures Any of the following diagnoses?: none - VTE Discharge Requirements Deep Vein Thrombosis/Pulmonary Embolism Present on Admission: No Has pt received <5 days of overlap therapy or INR<2.0: Yes Anticoagulant overlap therapy prescribed at discharge: Yes Contraindication No Overlap Therapy order at DC: Medical Contraindication - Acute NE Discharge Requirements Aspirin at discharge: No Reason for no aspirin on DC: Medical contraindication SOFIA/ARB for LVSD if EF <40%: Not Applicable Reason for no SOFIA/ARB: Medical contraindication Beta ketty at discharge: No Reason for no beta ketty on DC: Medical contraindication Statin for LDL = or >100 mg/dl on DC: Not Applicable Reason for no statin on DC: Medical contraindication - Heart Failure Discharge Requirements SOFIA/ARB for LVSD if EF <40%: Not Applicable Reason for no SOFIA/ARB: Medical contraindication Beta ketty at discharge: No Reason for no beta ketty on DC: Medical contraindication - Stroke Discharge Requirements Statin for LDL = or >70 mg/dl on DC: No Reason for no statin on DC: Medical Contraindication Anticoag for atrial fib/atrial flutter: No Reason for no anticoag for AF/F on DC: Medical Contraindication Antithrombotic for ischemic stroke: No Reason for no antithrombotic on DC: Medical Contraindication Exam - Constitutional Vitals: Temp Pulse Resp BP Pulse Ox 100.0 F H 101 H 20 123/68 96 05/02/19 11:29 05/02/19 11:29 05/02/19 11:29 05/02/19 11:29 05/02/19 11:29 General appearance: Present: no acute distress, well-nourished - EENT Eyes: Present: PERRL ENT: hearing intact, clear oral mucosa - Neck Neck: Present: supple, normal ROM - Respiratory Respiratory effort: normal Respiratory: bilateral: CTA - Cardiovascular Heart Sounds: Present: S1 & S2. Absent: rub, click - Extremities Extremities: pulses symmetrical, No edema Peripheral Pulses: within normal limits - Abdominal General gastrointestinal: Present: soft, non-tender, non-distended, normal bowel sounds Female genitourinary: Present: normal - Integumentary Integumentary: Present: clear, warm, dry - Musculoskeletal Musculoskeletal: gait normal, strength equal bilaterally - Psychiatric Psychiatric: appropriate mood/affect, intact judgment & insight - Neurologic Neurologic: CNII-XII intact, moves all extremities Plan Activity: advance as tolerated Weight Bearing Status: Weight Bear as Tolerated Diet: low fat, low cholesterol Wound: keep clean and dry Special Instructions: physical therapy, occupational therapy Durable Medical Equipment Needed Upon Discharge: Walker-Rolling, Bedside commode -elevated Follow up with: JOVANNA GUADARRAMA MD [Primary Care Provider] - 7 Days
[2019-05-02 15:45] VITALS: BP 150/80
== END 2019-05-02 17:00 | DRG 470 ==
LOC: 3A 05:59 → 3B-SURG 11:27
PROVIDERS: ADMIT Orthopaedic Surgery; ATTEND Orthopaedic Surgery
PROC: 0SRB0JZ Replacement of Left Hip Joint with Synthetic Substitute, Open Approach (ICD-10-PCS; principal; 2019-04-28)
DX: M16.12 Unilateral primary osteoarthritis, left hip (principal); D62 Acute posthemorrhagic anemia; R65.10 Systemic inflammatory response syndrome (SIRS) of non-infectious origin without acute organ dysfunction; Z68.41 Body mass index [BMI] 40.0-44.9, adult; E87.0 Hyperosmolality and hypernatremia; E87.6 Hypokalemia; E66.01 Morbid (severe) obesity due to excess calories; Z71.3 Dietary counseling and surveillance; Z87.891 Personal history of nicotine dependence; J45.909 Unspecified asthma, uncomplicated; I10 Essential (primary) hypertension; M06.9 Rheumatoid arthritis, unspecified; F32.9 Major depressive disorder, single episode, unspecified; K21.9 Gastro-esophageal reflux disease without esophagitis; E03.9 Hypothyroidism, unspecified; Z85.3 Personal history of malignant neoplasm of breast; Z80.3 Family history of malignant neoplasm of breast; Z88.5 Allergy status to narcotic agent; Z79.51 Long term (current) use of inhaled steroids; Z79.899 Other long term (current) drug therapy; Z90.11 Acquired absence of right breast and nipple
CPT/HCPCS: 36415; 71045; 80048; 80053; 81001; 83735; 85014; 85018; 85025; 86850; 86900; 86901; 87040; 87086; 88304; 88311; 90686; 94760; G0378; C1776; J0690; J1100; J1170; J1650; J1720; J1885; J2250; J2270; J2370; J2405; J2704; J3010; J7120

== ENCOUNTER 2019-10-11 21:10 | Inpatient (IN) | payer MEDICARE ==
[2019-10-11] MEDS ORDERED: ONDANSETRON 4 MG/2 ML INJ IV ONE (21:46)
[2019-10-11] MEDS ORDERED: fentaNYL 100 MCG/2 ML INJ IV ONE (21:46)
--- NOTE | 2019-10-11 21:51 | Emergency Department Report ---
HPI - General Chief Complaint: Abdominal Pain Time Seen by Provider: 10/11/19 21:33 - HPI HPI: Room 9 The patient is a 64-year-old female present with a chief complaint of abdominal pain. The patient states for the past 4 to 5 days she has had pain across her abdomen greatest on the right side. Patient describes the pain is constant and aching in nature. Patient is to nausea vomiting for the past 4 days. Patient denies diarrhea. Patient states she has had a decreased appetite. Patient denies cough. Of note the patient was reportedly COVID positive last month and she self quarantine for 2 weeks and was retested 09/29/2019 which was negative for COVID. ED Past Medical Hx - Past Medical History Hx Hypertension: Yes Hx GERD: Yes Hx Arthritis: Yes (RA- ON DAILY STEROIDS) Hx Asthma: Yes (SEASONAL , PRN INHALER; none recently) - Surgical History Hx Breast Surgery: Yes (BREAST BX) Additional Surgical History: Hip Replacement on Left in [facility] with Wound vac in place. C-spine surgery - Family History Family history: no significant - Social History Smoking Status: Never Smoker Substance Use Type: None (Denies illicit drug use) - Medications Home Medications: Home Medications Medication Instructions Recorded Confirmed Last Taken Type Albuterol Sulfate [Ventolin HFA] 2 puff IH Q4-6H PRN 06/13/16 05/23/19 05/21/19 History Bisoprolol/Hctz [Ziac 10-6.25] 1 each PO DAILY 06/13/16 05/23/19 05/21/19 History Etodolac [Etodolac ER] 500 mg PO BID 06/13/16 05/23/19 05/21/19 History Levothyroxine Sodium 137 mcg PO QAM 06/13/16 05/23/19 05/21/19 History [Levothyroxine] Losartan [Cozaar] 100 mg PO QDAY 06/13/16 05/23/19 05/21/19 History methylPREDNISolone [Medrol] 8 mg PO QDAY 06/13/16 05/23/19 05/21/19 History Gabapentin 300 mg PO TID 04/21/19 05/23/19 05/22/19 History Hydroxychloroquine [Plaquenil] 200 mg PO BID 04/21/19 05/23/19 05/22/19 History Ketorolac Tromethamin 0.4%(Nf) 4 drop OP DAILY 04/21/19 05/23/19 05/21/19 History [Acular Ls 0.4% Ophth Randi] Loratadine (Nf) [Claritin (Nf)] 10 mg PO DAILY 04/21/19 05/23/19 05/21/19 History Peg 400/Hypromellose/Glycerin [Hm 1 drop OP PRN PRN 04/21/19 05/23/19 05/21/19 History Dry Eye Relief Eye Drops] Solifenacin Succinate [Vesicare] 10 mg PO DAILY 04/21/19 05/23/19 05/21/19 History Turmeric Root Extract [Turmeric] 2 tab PO DAILY 04/21/19 05/23/19 05/21/19 History Enoxaparin 40 mg SUB-Q QDAY #30 syringe 06/10/19 Unknown Rx HYDROcodone/APAP 5-325 [[place] 1 each PO Q6HR PRN #10 tablet 06/10/19 Unknown Rx 5-325 mg TAB] Magnesium Oxide 400 mg PO BID 7 Days tablet 06/10/19 Unknown Rx Minocycline HCl 100 mg PO BID #60 capsule 06/10/19 Unknown Rx Pantoprazole [Protonix TAB] 40 mg PO DAILY #30 tablet 06/10/19 Unknown Rx Sertraline [Zoloft] 25 mg PO QDAY #30 tablet 06/10/19 Unknown Rx Sodium,Potassium Phosphates 1 each PO BID 5 Days powd.pack 06/10/19 Unknown Rx [Phos-Nak Packet] Vancomycin 125 mg PO Q6HR 24 Days oralsyr 06/10/19 Unknown Rx traZODone [Desyrel] 50 mg PO QHS #30 tablet 06/10/19 Unknown Rx ED Review of Systems ROS: Stated complaint: N/V x4 DAYS Other details as noted in HPI Constitutional: denies: fever Eyes: denies: eye pain ENT: denies: throat pain Respiratory: no symptoms reported Cardiovascular: denies: chest pain Endocrine: no symptoms reported Gastrointestinal: abdominal pain, nausea, vomiting. denies: diarrhea Genitourinary: denies: dysuria Musculoskeletal: denies: back pain Neurological: denies: headache Physical Exam - Physical Exam Physical Exam: GENERAL: The patient is well-developed well-nourished female lying on stretcher appearing to be in mild discomfort. [] HEENT: Normocephalic. Atraumatic. Extraocular motions are intact. Patient has moist mucous membranes. NECK: Supple. Trachea midline CHEST/LUNGS: Clear to auscultation. There is no respiratory distress noted. HEART/CARDIOVASCULAR: Regular. There is no tachycardia. There is no gallop rub or murmur. ABDOMEN: Abdomen is soft, with mild tenderness to palpation in the midepigastric and right upper quadrant. Patient has normal bowel sounds. There is no abdominal distention. SKIN: There is no rash. There is no edema. There is no diaphoresis. NEURO: The patient is awake, alert, and oriented. The patient is cooperative. The patient has no focal neurologic deficits. The patient has normal speech MUSCULOSKELETAL: There is no evidence of acute injury. ED Medical Decision Making - Lab Data Result diagrams: 10/11/19 21:55 10/11/19 21:55 Laboratory Tests 10/11/19 10/11/19 21:55 21:55 WBC 6.1 RBC 4.45 Hgb 12.7 Hct 39.7 MCV 89 MCH 29 MCHC 32 RDW 16.6 H Plt Count 329 Lymph % (Auto) 32.4 Oliver % (Auto) 8.9 H Eos % (Auto) 2.8 Baso % (Auto) 1.7 Lymph # 2.0 Oliver # 0.5 Eos # 0.2 Baso # 0.1 Seg Neutrophils % 54.2 Seg Neutrophils # 3.3 Sodium 142 Potassium 3.0 L Chloride 101.9 Carbon Dioxide 18 L Anion Gap 25 BUN 5 L Creatinine 0.5 L Estimated GFR > 60 BUN/Creatinine Ratio 10 Glucose 117 H Calcium 9.6 Total Bilirubin 1.50 H AST 37 ALT 34 Alkaline Phosphatase 61 Total Protein 6.4 Albumin 3.2 L Albumin/Globulin Ratio 1.0 Lipase 11 L - Radiology Data Radiology results: report reviewed (CT abdomen pelvis), image reviewed (CT abdomen pelvis) Findings [facility] [address] [place] [address] Cat Scan Report Signed Patient: DALI KERR MR#: [id number] : 1955 Acct:[id number] Age/Sex: 64 / F ADM Date: 10/11/19 Loc: ED Attending Dr: Ordering Physician: ALBIN FRY MD Date of Service: 10/11/19 Procedure(s): CT abdomen pelvis wo con Accession Number(s): [id number] cc: ALBIN FRY MD CT abdomen pelvis wo con INDICATION: Epigastric and RIGHT Upper Quadrant Abdominal Pain. TECHNIQUE: All CT scans at this location are performed using the following dose modulation technique: Automated exposure control. CONTRAST: None. COMPARISON: None available. CT ABDOMEN: Evaluation of the parenchymal organs demonstrates diffuse fatty infiltration the liver. The remaining parenchymal o rgans are unremarkable. Negative for abdominal mass, fluid or inflammation. The bowel is not dilated or thickened. Elevation of the left hemidiaphragm is associated with mild scarring. The gallbladder is diffusely high in density. CT PELVIS: Negative for pelvic mass, fluid or inflammation. A few noninflamed sigmoid diverticula are noted. Status post previous hysterectomy and placement of a left hip prosthesis. The appendix is normal. IMPRESSION: 1. Negative for obstruction or localized inflammation. 2. Prominent fatty infiltration of the liver. 3. Diffuse increased density of the gallbladder. Question milk of calcium. 4. Mild noninflamed colonic diverticulosis. Signer Name: Jeramy Almendarez MD Signed: 10/12/2019 12:42 AM Workstation Name: [id number] Transcribed By: ES Dictated By: Jeramy Almendarez MD Electronically Authenticated By: Jeramy Almendarez MD Signed Date/Time: 10/[birth year]/1941 DD/ 0037 TD/TT: - Differential Diagnosis Pancreatitis, peptic ulcer disease, GERD, partial small bowel obstruction Critical care attestation.: If time is entered above; I have spent that time in minutes in the direct care of this critically ill patient, excluding procedure time. ED Disposition Clinical Impression: Abdominal pain, Nausea & vomiting, Total bilirubin, elevated Disposition: 09 OP ADMIT IP TO THIS HOSP Is pt being admited?: Yes Does the pt Need Aspirin: No Condition: Stable Instructions: Abdominal Pain (ED) Referrals: PRIMARY CARE, [Primary Care Provider] - 3-5 Days Time of Disposition: 01:10 (Hospitalist paged (Dr. Ashlee Whyte))
[2019-10-11] MEDS ORDERED: SODIUM CHLORIDE 0.9% 1000 ML 1,000 ML IV ONE (21:55)
[2019-10-11 22:20] LABS: Basophils # (Auto) 0.1 K/mm3 (0.0-0.1); Basophils % (Auto) 1.7 % (0.0-1.8); Eosinophils # (Auto) 0.2 K/mm3 (0.0-0.4); Eosinophils % (Auto) 2.8 % (0.0-4.3); Hematocrit 39.7 % (30.3-42.9); Hemoglobin 12.7 gm/dl (10.1-14.3); Lymphocytes % (Auto) 32.4 % (13.4-35.0); Mean Corpuscular HGB Conc 32 % (30-34); Mean Corpuscular Volume 89 fl (79-97); Monocytes # (Auto) 0.5 K/mm3 (0.0-0.8); Monocytes % (Auto) 8.9 % (0.0-7.3); Platelet Count 329 K/mm3 (140-440); Red Blood Count 4.45 M/mm3 (3.65-5.03); Red Cell Distribution Width 16.6 % (13.2-15.2)
[2019-10-11 22:47] LABS: Alanine Aminotransferase 34 units/L (7-56); Albumin 3.2 g/dL (3.9-5); BUN/Creatinine Ratio 10; Blood Urea Nitrogen 5 mg/dL (7-17); Calcium 9.6 mg/dL (8.4-10.2); Hemolysis Index 11
[2019-10-11] MEDS ORDERED: fentaNYL 100 MCG/2 ML INJ IM ONE (22:54)
[2019-10-11] MEDS ORDERED: ONDANSETRON 4 MG/2 ML INJ IM ONE (22:54)
[2019-10-11] MEDS ORDERED: FAMOTIDINE 20 MG TAB PO ONE (22:55)
[2019-10-11] MEDS ORDERED: POTASSIUM CHLORIDE ER 20 MEQ TAB PO ONE (23:26)
--- NOTE | 2019-10-12 00:46 | Cat Scan Report ---
CT abdomen pelvis wo con INDICATION: Epigastric and RIGHT Upper Quadrant Abdominal Pain. TECHNIQUE: All CT scans at this location are performed using the following dose modulation technique: Automated exposure control. CONTRAST: None. COMPARISON: None available. CT ABDOMEN: Evaluation of the parenchymal organs demonstrates diffuse fatty infiltration the liver. T he remaining parenchymal organs are unremarkable. Negative for abdominal mass, fluid or inflammation. The bowel is not dilated or thickened. Elevation of the left hemidiaphragm is associated with mild scarring. The gallbladder is diffusely high in density. CT PELVIS: Negative for pelvic mass, fluid or inflammation. A few noninflamed sigmoid diverticula are noted. Status post previous hysterectomy and placement of a left hip prosthesis. The appendix is normal. IMPRESSION: 1. Negative for obstruction or localized inflammation. 2. Prominent fatty infiltration of the liver. 3. Diffuse increased density of the gallbladder. Question milk of calcium. 4. Mild noninflamed colonic diverticulosis. Signer Name: Jeramy Almendarez MD Signed: 10/12/2019 12:42 AM Workstation Name: [id number]
--- NOTE | 2019-10-12 02:20 | History and Physical Report ---
History of Present Illness History of present illness: 64-year-old woman with a history of hypertension, hypothyroidism, rheumatoid arthritis, osteoarthritis, history of breast cancer comes emergency room with complaints of abdominal pain started 5 days ago. Pain is in the right upper quadrant which she describes as sharp, constant, intensity 5/10, no radiation, cannot identify exacerbating or relieving factors. Patient was tested positive for COVID on September 15, she was quarantine was subsequently tested negative on the . Patient will be admitted for abdominal pain Review Of Systems: Constitutional: no weight loss, fever, chills Ears, eyes, nose, mouth and throat: no nasal congestion, no nasal discharge, no sinus pressure, blurry vision, diplopia Neck: No neck pain or rigidity. Cardiovascular: No palpitations, chest pain Respiratory: No shortness of breath, cough Gastrointestinal: No hematochezia Genitourinary : no dysuria, frequency Musculoskeletal: no muscle ache , joint pain Integumentary: no rash, no pruritis Neurological: no parathesias, focal weakness Endocrine: no cold or heat intolerance, no polyuria or polydipsia Hematologic/Lymphatic: no easy bruising, no easy bleeding, no gland swelling Allergic/Immunologic: no urticaria, no angioedema. PAST MEDICAL HISTORY: hypertension, hypothyroidism, rheumatoid arthritis, osteoarthritis, history of breast cancer PAST SURGICAL HISTORY: Mastectomy, back, right heel, hip replacement SOCIAL HISTORY: Denies alcohol, tobacco, drugs FAMILY HISTORY: Hypertension Medications and Allergies Allergies Allergy/AdvReac Type Severity Reaction Status Date / Time cephalexin [From Keflex] AdvReac Shortness Verified 05/23/19 14:29 of Breath codeine AdvReac Vomiting, Verified 05/23/19 14:29 headaches Home Medications Medication Instructions Recorded Confirmed Last Taken Type Albuterol Sulfate [Ventolin HFA] 2 puff IH Q4-6H PRN 06/13/16 05/23/19 05/21/19 History Bisoprolol/Hctz [Ziac 10-6.25] 1 each PO DAILY 06/13/16 05/23/19 05/21/19 History Etodolac [Etodolac ER] 500 mg PO BID 06/13/16 05/23/19 05/21/19 History Levothyroxine Sodium 137 mcg PO QAM 06/13/16 05/23/19 05/21/19 History [Levothyroxine] Losartan [Cozaar] 100 mg PO QDAY 06/13/16 05/23/19 05/21/19 History methylPREDNISolone [Medrol] 8 mg PO QDAY 06/13/16 05/23/19 05/21/19 History Gabapentin 300 mg PO TID 04/21/19 05/23/19 05/22/19 History Hydroxychloroquine [Plaquenil] 200 mg PO BID 04/21/19 05/23/19 05/22/19 History Ketorolac Tromethamin 0.4%(Nf) 4 drop OP DAILY 04/21/19 05/23/19 05/21/19 History [Acular Ls 0.4% Ophth Randi] Loratadine (Nf) [Claritin (Nf)] 10 mg PO DAILY 04/21/19 05/23/19 05/21/19 History Peg 400/Hypromellose/Glycerin [Hm 1 drop OP PRN PRN 04/21/19 05/23/19 05/21/19 History Dry Eye Relief Eye Drops] Solifenacin Succinate [Vesicare] 10 mg PO DAILY 04/21/19 05/23/19 05/21/19 History Turmeric Root Extract [Turmeric] 2 tab PO DAILY 04/21/19 05/23/19 05/21/19 History Enoxaparin 40 mg SUB-Q QDAY #30 syringe 06/10/19 Unknown Rx HYDROcodone/APAP 5-325 [[place] 1 each PO Q6HR PRN #10 tablet 06/10/19 Unknown Rx 5-325 mg TAB] Magnesium Oxide 400 mg PO BID 7 Days tablet 06/10/19 Unknown Rx Minocycline HCl 100 mg PO BID #60 capsule 06/10/19 Unknown Rx Pantoprazole [Protonix TAB] 40 mg PO DAILY #30 tablet 06/10/19 Unknown Rx Sertraline [Zoloft] 25 mg PO QDAY #30 tablet 06/10/19 Unknown Rx Sodium,Potassium Phosphates 1 each PO BID 5 Days powd.pack 06/10/19 Unknown Rx [Phos-Nak Packet] Vancomycin 125 mg PO Q6HR 24 Days oralsyr 06/10/19 Unknown Rx traZODone [Desyrel] 50 mg PO QHS #30 tablet 06/10/19 Unknown Rx Exam - Physical Exam Narrative exam: Gen. appearance: Patient lying in bed, no apparent distress HEENT: Normocephalic, atraumatic, pupils equally round and reactive to light, extraocular movement intact, and no sclericterus,. No JVD or thyromegaly or nodule,neck supple, no carotid bruit ,mucous membranes moist, no exudate or erythema Heart: S1, S2, regular rate and rhythm Lungs: Clear bilaterally, breathing comfortable Abdomen: Positive bowel sounds, tender right upper quadrant,, nondistended, no organomegaly Extremity: no edema, cyanosis, clubbing Skin: No rash, nodules, warm, dry Neuro: Cranial nerves II to XII intact, speech is fluent, moves extremities, sensory intact - Constitutional Vitals: Temp Pulse Resp BP Pulse Ox 99.0 F 106 H 20 139/85 95 10/12/19 02:04 10/12/19 02:04 10/12/19 02:04 10/12/19 02:04 10/12/19 02:04 Results - Labs CBC & Chem 7: 10/11/19 21:55 10/11/19 21:55 Labs: Abnormal lab results 10/11/19 10/11/19 Range/Units 21:55 21:55 RDW 16.6 H (13.2-15.2) % [place] % (Auto) 8.9 H (0.0-7.3) % Potassium 3.0 L (3.6-5.0) mmol/L Carbon Dioxide 18 L (22-30) mmol/L BUN 5 L (7-17) mg/dL Creatinine 0.5 L (0.7-1.2) mg/dL Glucose 117 H (65-100) mg/dL Total Bilirubin 1.50 H (0.1-1.2) mg/dL Albumin 3.2 L (3.9-5) g/dL Lipase 11 L (13-60) units/L - Imaging and Cardiology CT scan - abdomen: report reviewed CT scan - pelvis: report reviewed Assessment and Plan Assessment Abdominal pain/abnormal gallbladder Surgery was consulted, IV morphine UTI, start Levaquin Hypertension Continue antihypertensives Hypothyroidism Continue Synthroid Rheumatoid/osteoarthritis, stable DVT prophylaxis
[2019-10-12 04:23] LABS: Bilirubin,Urine NEG (Negative); Blood,Urine SM (Negative); Color,Urine Amber (Yellow); Mucus,Urine 2+ /HPF
[2019-10-12] MEDS ORDERED: ACETAMINOPHEN 325 MG TAB PO PRN (06:09)
[2019-10-12] MEDS: ONDANSETRON 4 MG/2 ML INJ IV PRN ×3 (07:03→21:57)
--- NOTE | 2019-10-12 08:40 | Event Note ---
Date: 10/12/19 Patient with abdominal pain. CT Abdomen reveals increased density of gallbladder. Surgeon consulted.
[2019-10-12 09:12] LABS: Basophils # (Auto) 0.1 K/mm3 (0.0-0.1); Basophils % (Auto) 2.7 % (0.0-1.8); Eosinophils # (Auto) 0.1 K/mm3 (0.0-0.4); Eosinophils % (Auto) 2.5 % (0.0-4.3); Hemoglobin 11.6 gm/dl (10.1-14.3); Lymphocytes # (Auto) 1.7 K/mm3 (1.2-5.4); Lymphocytes % (Auto) 33.5 % (13.4-35.0); Mean Corpuscular HGB Conc 32 % (30-34); Mean Corpuscular Volume 88 fl (79-97); Monocytes # (Auto) 0.7 K/mm3 (0.0-0.8); Monocytes % (Auto) 12.8 % (0.0-7.3); Platelet Count 297 K/mm3 (140-440); Red Blood Count 4.07 M/mm3 (3.65-5.03); Red Cell Distribution Width 16.3 % (13.2-15.2)
[2019-10-12 09:33] LABS: Alanine Aminotransferase 28 units/L (7-56); Albumin 3.1 g/dL (3.9-5); BUN/Creatinine Ratio 10; Blood Urea Nitrogen 5 mg/dL (7-17); Calcium 9.3 mg/dL (8.4-10.2); Hemolysis Index 7
--- NOTE | 2019-10-12 10:50 | Ultrasound Report ---
ULTRASOUND ABDOMEN, COMPLETE INDICATION: Right upper quadrant pain. Abnormal appearance of the gallbladder on prior CT. COMPARISON: CT abdomen and pelvis without contrast from 10/12/2019. FINDINGS: Pancreas: No significant abnormality. Abdominal Aorta: No significant abnormality. IVC: No significant abnormality. Liver: Generalized steatosis is again seen. No additional significant abnormality. Gallbladder: The gallbladder is partially contracted and contains a large amount of sludge as well as multiple tiny stones. No wall thickening, pericholecystic fluid or positive sonographic Fleming sign. Bile ducts: No significant abnormality. Common bile duct measures 6 mm. Kidneys: Right: No significant abnormality. Left : No significant abnormality. Spleen: Not well visualized.. Free fluid: None. Additional Findings: None. IMPRESSION: 1. Cholelithiasis without sonographic evidence of acute cholecystitis. 2. Hepatic steatosis. Signer Name: Chele Norton MD Signed: 10/12/2019 10:46 AM Workstation Name: [id number]
[2019-10-12] MEDS: ENOXAPARIN 40 MG/0.4 ML INJ SUB-Q SCH (10:59)
[2019-10-12] MEDS: POTASSIUM CHLORIDE 10 MEQ 10 MEQ/100 ML BAG IV SCH (11:00)
--- NOTE | 2019-10-12 13:40 | Consultation ---
History of Present Illness Consult date: 10/12/19 Reason for consult: gallstones Chief complaint: Abdominal pain - History of present illness History of present illness: 64-year-old female with a past medical history of hypertension, hypothyroidism, breast cancer who presented to the emergency room with right upper quadrant abdominal pain that started 5 days ago. The patient states that the pain is sharp, constant, and does not radiate. The patient states that she has had the symptoms in the past. She states that the last time she had symptoms like this was in July and she was told by a physician that she will eventually need her gallbladder removed. She states that the symptoms have caused her to have lack of appetite, nausea, sometimes vomiting. No fevers, chills, chest pain, shortness of breath. The patient has been admitted to a rehab facility for a wound on her left hip. The wound is not infected. The patient tested positive on September 15 for COVID. She states that she had no symptoms however everyone in the rehab was being tested. She subsequently tested negative for COVID on September 28. Past History Past Medical History: cancer (Breast), hypertension, hypothyroidism, other (Rhe umatoid arthritis, osteoarthritis) Past Surgical History: Other (Laminectomy lumbar spine, cervical spine fusion, right mastectomy, debridement left hip wound) Social history: no significant social history Family history: no significant family history Medications and Allergies Allergies Allergy/AdvReac Type Severity Reaction Status Date / Time cephalexin [From Keflex] AdvReac Shortness Verified 05/23/19 14:29 of Breath codeine AdvReac Vomiting, Verified 05/23/19 14:29 headaches Home Medications Medication Instructions Recorded Confirmed Last Taken Type Albuterol Sulfate [Ventolin HFA] 2 puff IH Q4-6H PRN 06/13/16 10/12/19 05/21/19 History Bisoprolol/Hctz [Ziac 10-6.25] 1 each PO DAILY 06/13/16 10/12/19 05/21/19 History Etodolac [Etodolac ER] 500 mg PO BID 06/13/16 10/12/19 05/21/19 History Levothyroxine Sodium 137 mcg PO QAM 06/13/16 10/12/19 05/21/19 History [Levothyroxine] Losartan [Cozaar] 100 mg PO QDAY 06/13/16 10/12/19 05/21/19 History methylPREDNISolone [Medrol] 8 mg PO QDAY 06/13/16 10/12/19 05/21/19 History Gabapentin 300 mg PO TID 04/21/19 10/12/19 05/22/19 History Hydroxychloroquine [Plaquenil] 200 mg PO BID 04/21/19 10/12/19 05/22/19 History Ketorolac Tromethamin 0.4%(Nf) 4 drop OP DAILY 04/21/19 10/12/19 05/21/19 History [Acular Ls 0.4% Ophth Randi] Loratadine (Nf) [Claritin (Nf)] 10 mg PO DAILY 04/21/19 10/12/19 05/21/19 History Peg 400/Hypromellose/Glycerin [Hm 1 drop OP PRN PRN 04/21/19 10/12/19 05/21/19 History Dry Eye Relief Eye Drops] Solifenacin Succinate [Vesicare] 10 mg PO DAILY 04/21/19 10/12/19 05/21/19 History Turmeric Root Extract [Turmeric] 2 tab PO DAILY 04/21/19 10/12/19 05/21/19 History Enoxaparin 40 mg SUB-Q QDAY #30 syringe 06/10/19 10/12/19 Unknown Rx HYDROcodone/APAP 5-325 [[place] 1 each PO Q6HR PRN #10 tablet 06/10/19 10/12/19 Unknown Rx 5-325 mg TAB] Magnesium Oxide 400 mg PO BID 7 Days tablet 06/10/19 10/12/19 Unknown Rx Minocycline HCl 100 mg PO BID #60 capsule 06/10/19 10/12/19 Unknown Rx Pantoprazole [Protonix TAB] 40 mg PO DAILY #30 tablet 06/10/19 10/12/19 Unknown Rx Sertraline [Zoloft] 25 mg PO QDAY #30 tablet 06/10/19 10/12/19 Unknown Rx Sodium,Potassium Phosphates 1 each PO BID 5 Days powd.pack 06/10/19 10/12/19 Unknown Rx [Phos-Nak Packet] Vancomycin 125 mg PO Q6HR 24 Days oralsyr 06/10/19 10/12/19 Unknown Rx traZODone [Desyrel] 50 mg PO QHS #30 tablet 06/10/19 10/12/19 Unknown Rx Active Meds: Active Medications Acetaminophen (Tylenol) 650 mg PO Q4H PRN PRN Reason: Pain MILD(1-3)/Fever >100.5/PULLIAM Enoxaparin Sodium (Enoxaparin) 40 mg SUB-Q QDAY [facility] Last Admin: 10/12/19 10:59 Dose: 40 mg Documented by: Levofloxacin/Dextrose (Levaquin 500mg/100ml) 500 mg in 100 mls @ 100 mls/hr IV Q24H [facility]; Protocol Last Admin: 10/12/19 11:03 Dose: 100 mls/hr Documented by: Morphine Sulfate (Morphine) 2 mg IV Q4H PRN PRN Reason: Pain, Moderate (4-6) Ondansetron HCl (Zofran) 4 mg IV Q4H PRN PRN Reason: Nausea And Vomiting Last Admin: 10/12/19 07:03 Dose: 4 mg Documented by: Potassium Chloride (K-Dur) 40 meq PO Q2HR [facility] Stop: 10/12/19 16:01 Sodium Chloride (Sodium Chloride Flush Syringe 10 Ml) 10 ml IV BID [facility] Last Admin: 10/12/19 11:00 Dose: 10 ml Documented by: Sodium Chloride (Sodium Chloride Flush Syringe 10 Ml) 10 ml IV PRN PRN PRN Reason: LINE FLUSH Last Admin: 10/12/19 07:03 Dose: 10 ml Documented by: Review of Systems All systems: negative (10 point review of systems was performed and negative except for that listed in HPI) Exam Vital Signs Pulse Resp BP 108 H 19 121/84 10/11/19 21:45 10/11/19 21:45 10/11/19 21:45 Narrative exam: Gen.: Awake, alert, oriented 3. Mild distress due to abdominal pain ENT: Trachea midline. No lymphadenopathy. No scleral icterus or conjunctival pallor CV: S1, S2 present Respiratory: No audible wheezes Abdomen: Soft, nondistended, right upper quadrant and epigastric tenderness to palpation. No rebound, rigidity, guarding Extremities: No clubbing, cyanosis, edema Results - Labs 10/12/19 08:59 10/12/19 08:59 Abnormal lab results 10/11/19 10/11/19 10/11/19 Range/Units 21:55 21:55 Unknown RDW 16.6 H (13.2-15.2) % Maries % (Auto) 8.9 H (0.0-7.3) % Baso % (Auto) (0.0-1.8) % Potassium 3.0 L (3.6-5.0) mmol/L Carbon Dioxide 18 L (22-30) mmol/L BUN 5 L (7-17) mg/dL Creatinine 0.5 L (0.7-1.2) mg/dL Glucose 117 H (65-100) mg/dL Total Bilirubin 1.50 H (0.1-1.2) mg/dL Total Protein (6.3-8.2) g/dL Albumin 3.2 L (3.9-5) g/dL Lipase 11 L (13-60) units/L Urine WBC (Auto) 8.0 H (0.0-6.0) /HPF 10/12/19 10/12/19 Range/Units 08:59 08:59 RDW 16.3 H (13.2-15.2) % [place]ies % (Auto) 12.8 H (0.0-7.3) % Baso % (Auto) 2.7 H (0.0-1.8) % Potassium 3.0 L (3.6-5.0) mmol/L Carbon Dioxide (22-30) mmol/L BUN 5 L (7-17) mg/dL Creatinine 0.5 L (0.7-1.2) mg/dL Glucose (65-100) mg/dL Total Bilirubin (0.1-1.2) mg/dL Total Protein 5.8 L (6.3-8.2) g/dL Albumin 3.1 L (3.9-5) g/dL Lipase (13-60) units/L Urine WBC (Auto) (0.0-6.0) /[facility] Diabetes panel 10/11/19 10/12/19 Range/Units 21:55 08:59 Sodium 142 141 (137-145) mmol/L Potassium 3.0 L 3.0 L (3.6-5.0) mmol/L Chloride 101.9 102.7 (98-107) mmol/L Carbon Dioxide 18 L 22 (22-30) mmol/L BUN 5 L 5 L (7-17) mg/dL Creatinine 0.5 L 0.5 L (0.7-1.2) mg/dL Glucose 117 H 91 (65-100) mg/dL Calcium 9.6 9.3 (8.4-10.2) mg/dL AST 37 32 (5-40) units/L ALT 34 28 (7-56) units/L Alkaline Phosphatase 61 56 (35-129) units/L Total Protein 6.4 5.8 L (6.3-8.2) g/dL Albumin 3.2 L 3.1 L (3.9-5) g/dL Calcium panel 10/11/19 10/12/19 Range/Units 21:55 08:59 Calcium 9.6 9.3 (8.4-10.2) mg/dL Albumin 3.2 L 3.1 L (3.9-5) g/dL Pituitary panel 10/11/19 10/12/19 Range/Units 21:55 08:59 Sodium 142 141 (137-145) mmol/L Potassium 3.0 L 3.0 L (3.6-5.0) mmol/L Chloride 101.9 102.7 (98-107) mmol/L Carbon Dioxide 18 L 22 (22-30) mmol/L BUN 5 L 5 L (7-17) mg/dL Creatinine 0.5 L 0.5 L (0.7-1.2) mg/dL Glucose 117 H 91 (65-100) mg/dL Calcium 9.6 9.3 (8.4-10.2) mg/dL Adrenal panel 10/11/19 10/12/19 Range/Units 21:55 08:59 Sodium 142 141 (137-145) mmol/L Potassium 3.0 L 3.0 L (3.6-5.0) mmol/L Chloride 101.9 102.7 (98-107) mmol/L Carbon Dioxide 18 L 22 (22-30) mmol/L BUN 5 L 5 L (7-17) mg/dL Creatinine 0.5 L 0.5 L (0.7-1.2) mg/dL Glucose 117 H 91 (65-100) mg/dL Calcium 9.6 9.3 (8.4-10.2) mg/dL Total Bilirubin 1.50 H 1.20 (0.1-1.2) mg/dL AST 37 32 (5-40) units/L ALT 34 28 (7-56) units/L Alkaline Phosphatase 61 56 (35-129) units/L Total Protein 6.4 5.8 L (6.3-8.2) g/dL Albumin 3.2 L 3.1 L (3.9-5) g/dL - Imaging CT scan - abdomen: report reviewed, image reviewed CT scan - pelvis: report reviewed, image reviewed US - abdomen: report reviewed, image reviewed Assessment and Plan 64-year-old female with symptomatic cholelithiasis, intractable nausea/vomiting, elevated bilirubin 1. NPO 2. IVF 3. prn pain and nausea control 4. abx 5. DVT ppx 6. Patient symptoms likely due to cholelithiasis. Bilirubin was elevated and has trended down to 1.2 from 1.5. LFTs are within normal limits. Recommend cholecystectomy with IOC. I discussed all risks, benefits, alternatives to surgery with the patient and questions were answered. Consent was obtained for laparoscopic cholecystectomy, possible open, possible cholangiogram. 7. Repeat CMP in a.m. 8. Patient added on to surgery scheduled for tomorrow 10/13/2019 Plan discussed with the patient's RN. The patient was instructed to call her next of kin who is her nephew to inform them of the plan. Thank you for this consultation. Please call with any questions or concerns.
[2019-10-12] MEDS: D5W/0.45% NACL/KCL 20 MEQ 20 MEQ/1,000 ML BAG IV SCH (14:25)
[2019-10-12] MEDS: POTASSIUM CHLORIDE ER 20 MEQ TAB PO SCH ×2 (14:25→17:11)
[2019-10-12] MEDS: MORPHINE 2 MG/1 ML INJ IV PRN (17:19)
[2019-10-13] MEDS: D5W/0.45% NACL/KCL 20 MEQ 20 MEQ/1,000 ML BAG IV SCH ×2 (03:08→23:46)
[2019-10-13] MEDS: ONDANSETRON 4 MG/2 ML INJ IV PRN ×2 (04:01→09:52)
[2019-10-13 08:59] LABS: Alanine Aminotransferase 23 units/L (7-56); Albumin 3.1 g/dL (3.9-5); BUN/Creatinine Ratio 6; Blood Urea Nitrogen 3 mg/dL (7-17); Calcium 9.2 mg/dL (8.4-10.2); Hemolysis Index 18
[2019-10-13] MEDS: ENOXAPARIN 40 MG/0.4 ML INJ SUB-Q SCH (09:51)
[2019-10-13] MEDS ORDERED: HYDROmorphone 1 MG/1 ML INJ IV PRN (12:00)
[2019-10-13] MEDS ORDERED: ONDANSETRON 4 MG/2 ML INJ IV PRN (12:00)
--- NOTE | 2019-10-13 12:00 | Anesthesia Consultation ---
Anesthesia Consult and Med Hx - Airway Anesthetic Teeth Evaluation: Good ROM Head & Neck: Adequate Mental/Hyoid Distance: Adequate Mallampati Class: Class III Intubation Access Assessment: Probably Good - Pulmonary Exam CTA: Yes - Cardiac Exam Cardiac Exam: RRR - Pre-Operative Health Status ASA Pre-Surgery Classification: ASA3 Proposed Anesthetic Plan: General - Pulmonary Hx Smoking: Yes (STOPPED 2003) Hx Asthma: Yes Hx Respiratory Symptoms: No COPD: No Hx Pneumonia: No Hx Sleep Apnea: No (NANI PRE SCREEN HIGH RISK) - Cardiovascular System Hx Hypertension: Yes Hx Heart Attack/AMI: No Hx Percutaneous Transluminal Coronary Angioplasty (PTCA): No Hx Pacemaker: No Hx Internal Defibrillator: No - Central Nervous System Hx Neuromuscular Disorder: Yes (Rheumatoid arthritis) CVA: No Hx Back Pain: Yes Hx Psychiatric Problems: Yes (Depression) - Gastrointestinal Hx Gastroesophageal Reflux Disease: Yes (asymptomatic today) - Endocrine Hx Renal Disease: No Hx End Stage Renal Disease: No Hx Liver Disease: No Hx Insulin Dependent Diabetes: No Hx Non-Insulin Dependent Diabetes: No Hx Hypothyroidism: Yes - Hematic Hx Anemia: Yes - Other Systems Hx Cancer: Yes Hx Obesity: Yes (BMI 42)
--- NOTE | 2019-10-13 12:00 | Anesthesia Day of Surgery ---
Anesthesia Day of Surgery - Day of Surgery Patient Examined: Yes Patient H&P Reviewed: Yes Patient is NPO: Yes
[2019-10-13] MEDS ORDERED: MIDAZOLAM 2 MG/2 ML INJ IV NR (14:00)
[2019-10-13] MEDS ORDERED: LACTATED RINGERS 1,000 ML IV SCH (14:00)
--- NOTE | 2019-10-13 14:29 | Progress Note ---
Assessment and Plan Assessment and plan: Abdominal pain/abnormal gallbladder Surgery was consulted, IV morphine For cholecystectomy today UTI continue Levaquin Hypertension Continue antihypertensives Hypothyroidism Continue Synthroid Rheumatoid/osteoarthritis, stable DVT prophylaxis History Interval history: Patient presented with abdominal pain, nausea, vomiting Hospitalist Physical - Physical exam Narrative exam: GEN: Not in acute distress, obese, lying in bed HEENT: Normocephalic, atraumatic, Neck: supple, No JVD Lungs: Clear to auscultation bilaterally, heart;S1 and S2 reg, no murmurs, rubs or gallop Abd:soft,mild tender RUQ, no rebound, non distended, normal bowel sounds, Ext: No edema, no clubbing, no cyanosis, left hip surgical wound with wound vac Neuro: Awake,alert,oriented X3 , no focal signs, - Constitutional Vitals: Temp Pulse Resp BP Pulse Ox 98.8 F 100 H 18 146/59 99 10/13/19 11:16 10/13/19 11:16 10/13/19 11:16 10/13/19 11:16 10/13/19 11:16 Results - Labs CBC & Chem 7: 10/12/19 08:59 10/13/19 08:17 Labs: Laboratory Last Values WBC 5.2 K/mm3 (4.5-11.0) 10/12/19 08:59 RBC 4.07 M/mm3 (3.65-5.03) 10/12/19 08:59 Hgb 11.6 gm/dl (10.1-14.3) 10/12/19 08:59 Hct 36.0 % (30.3-42.9) 10/12/19 08:59 MCV 88 fl (79-97) 10/12/19 08:59 MCH 29 pg (28-32) 10/12/19 08:59 MCHC 32 % (30-34) 10/12/19 08:59 RDW 16.3 % (13.2-15.2) H 10/12/19 08:59 Plt Count 297 K/mm3 (140-440) 10/12/19 08:59 Lymph % (Auto) 33.5 % (13.4-35.0) 10/12/19 08:59 [place] % (Auto) 12.8 % (0.0-7.3) H 10/12/19 08:59 Eos % (Auto) 2.5 % (0.0-4.3) 10/12/19 08:59 Baso % (Auto) 2.7 % (0.0-1.8) H 10/12/19 08:59 Lymph # 1.7 K/mm3 (1.2-5.4) 10/12/19 08:59 [place] # 0.7 K/mm3 (0.0-0.8) 10/12/19 08:59 Eos # 0.1 K/mm3 (0.0-0.4) 10/12/19 08:59 Baso # 0.1 K/mm3 (0.0-0.1) 10/12/19 08:59 Seg Neutrophils % 48.5 % (40.0-70.0) 10/12/19 08:59 Seg Neutrophils # 2.5 K/mm3 (1.8-7.7) 10/12/19 08:59 Sodium 140 mmol/L (137-145) 10/13/19 08:17 Potassium 3.5 mmol/L (3.6-5.0) L 10/13/19 08:17 Chloride 106.3 mmol/L (98-107) 10/13/19 08:17 Carbon Dioxide 23 mmol/L (22-30) 10/13/19 08:17 Anion Gap 14 mmol/L 10/13/19 08:17 BUN 3 mg/dL (7-17) L 10/13/19 08:17 Creatinine 0.5 mg/dL (0.7-1.2) L 10/13/19 08:17 Estimated GFR > 60 ml/min 10/13/19 08:17 BUN/Creatinine Ratio 6 % 10/13/19 08:17 Glucose 129 mg/dL (65-100) H 10/13/19 08:17 Calcium 9.2 mg/dL (8.4-10.2) 10/13/19 08:17 Total Bilirubin 1.30 mg/dL (0.1-1.2) H 10/13/19 08:17 AST 27 units/L (5-40) 10/13/19 08:17 ALT 23 units/L (7-56) 10/13/19 08:17 Alkaline Phosphatase 53 units/L (35-129) 10/13/19 08:17 Total Protein 5.6 g/dL (6.3-8.2) L 10/13/19 08:17 Albumin 3.1 g/dL (3.9-5) L 10/13/19 08:17 Albumin/Globulin Ratio 1.2 % 10/13/19 08:17 Lipase 11 units/L (13-60) L 10/11/19 21:55 Urine Color Cyndi (Yellow) 10/11/19 Unknown Urine Turbidity Slightly-cloudy (Clear) 10/11/19 Unknown Urine pH 6.0 (5.0-7.0) 10/11/19 Unknown Ur Specific [place] 1.016 (1.003-1.030) 10/11/19 Unknown Urine Protein 30 mg/dl mg/dL (Negative) 10/11/19 Unknown Urine Glucose (UA) Neg mg/dL (Negative) 10/11/19 Unknown Urine Ketones 80 mg/dL (Negative) 10/11/19 Unknown Urine Blood Sm (Negative) 10/11/19 Unknown Urine Nitrite Neg (Negative) 10/11/19 Unknown Urine Bilirubin Neg (Negative) 10/11/19 Unknown Urine Urobilinogen 4.0 mg/dL (<2.0) 10/11/19 Unknown Ur Leukocyte Esterase Tr (Negative) 10/11/19 Unknown Urine WBC (Auto) 8.0 /HPF (0.0-6.0) H 10/11/19 Unknown Urine RBC (Auto) 3.0 /HPF (0.0-6.0) 10/11/19 Unknown U Epithel Cells (Auto) 7.0 /HPF (0-13.0) 10/11/19 Unknown Urine Mucus 2+ /HPF 10/11/19 Unknown [place]an/IV: Voiding Method External Female Catheter IV Catheter Type [Left Upper Mid-line arm] IV Catheter Type [Left Wrist] INT / Saline Lock Active Medications - Current Medications Current Medications: Generic Name Dose Route Start Last Admin Trade Name Freq PRN Reason Stop Dose Admin Acetaminophen 650 mg 10/12/19 06:09 Tylenol PO Q4H PRN Pain MILD(1-3)/Fever >100.5/PULLIAM Enoxaparin Sodium 40 mg 10/12/19 10:00 10/13/19 09:51 Enoxaparin SUB-Q Not Given QDAY SYDNI Hydromorphone HCl 0.5 mg 10/13/19 12:00 Dilaudid IV Q10MIN PRN Pain , Severe (7-10) Levofloxacin/Dextrose 500 mg in 100 mls @ 100 mls/hr 10/12/19 08:00 10/13/19 08:00 Levaquin 500mg/100ml IV 100 mls/hr Q24H SYDNI Administration Protocol Potassium Chloride/Dextrose/Sod Cl 20 meq in 1,000 mls @ 100 mls/hr 10/12/19 14:00 10/13/19 03:08 D5w/0.45% Nacl/Kcl 20 Meq IV 100 mls/hr DIRECT SYDNI Administration Lactated Ringer's 1,000 mls @ 100 mls/hr 10/13/19 14:00 10/13/19 14:05 Lactated Ringers IV 100 mls/hr DIRECT SYDNI Administration Midazolam HCl 2 mg 10/13/19 14:00 10/13/19 14:21 Versed IV 10/13/19 23:59 2 mg PREOP NR Administration Morphine Sulfate 2 mg 10/12/19 06:09 10/12/19 17:19 Morphine IV 2 mg Q4H PRN Administration Pain, Moderate (4-6) Ondansetron HCl 4 mg 10/12/19 06:09 10/13/19 09:52 Zofran IV 4 mg Q4H PRN Administration Nausea And Vomiting Ondansetron HCl 4 mg 10/13/19 12:00 Zofran IV 10/13/19 23:59 ONCE PRN Nausea And Vomiting Sodium Chloride 10 ml 10/12/19 10:00 10/13/19 09:53 Sodium Chloride Flush Syringe 10 Ml IV 10 ml BID SYDNI Administration Sodium Chloride 10 ml 10/12/19 06:09 10/13/19 04:01 Sodium Chloride Flush Syringe 10 Ml IV 10 ml PRN PRN Administration LINE FLUSH Nutrition/Malnutrition Assess - Dietary Evaluation Nutrition/Malnutrition Findings: Nutrition Notes Start: 10/12/19 14:11 Freq: Status: Active Protocol: Document 10/12/19 14:11 LM (Rec: 10/12/19 14:19 LM [id number]) Nutrition Notes Need for Assessment generated from: correctional nurse,MST Initial or Follow up Assessment Current Diagnosis Hypertension Other Pertinent Diagnosis hx breast CA, UTI, abdominal pain, hypothyroid, L hip/ sacral wounds Current Diet NPO Labs/Tests K 3 Pertinent Medications Reviewed Height 5 ft 5 in Weight 104.326 kg Usual Body Weight 104.326 kg [place] Body Weight (kg) 56.81 BMI 38.2 Weight Status Obese Subjective/Other Information RN screen for MST and skin risk. Pt with wounds. 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 Pt is NPO now but stated her appetite is poor. Pt stated her UBW is 230 lb. Burn Absent Trauma Absent GI Symptoms Other Current % PO Negligible Minimum of two criteria No physical signs of malnutrition #1 Nutrition Diagnosis Inadequate oral intake Etiology Abdominal pain As Evidenced by Signs and Symptoms Pt statement of not eating for a few days, NPO Is patient on ventilator? No Is Patient Ambulatory and/or Out of Bed No REE-([place]-confined to bed) 1911.948 Kcal/Kg value to use for calculation 14 Approximate Energy Requirements Using 1461 kcal/Kg Calculation Used for Recommendations Kcal/kg Additional Notes Protein: 101-122g (1.25-1.5g/ kg using AdjBW 81kg) Fluid: 1 ml/kcal Nutrition Intervention Change Diet Order: diet advancement when medically feasible Goal #1 diet advancement when medically feasible Anticipated Discharge Needs: cardiac Follow-Up By: 10/14/19 Additional Comments F/U for diet advancement, ONS needs
[2019-10-13] MEDS ORDERED: LIDOCAINE (1%) 10 MG/1 ML VIAL 20 ML MDV ONE (15:16)
[2019-10-13] MEDS ORDERED: BUPIVACAINE/PF (0.5%) 5 MG/1 ML 30 ML VIAL INFILTRATI ONE (15:16)
[2019-10-13] MEDS ORDERED: ROCURONIUM 50 MG/5 ML INJ IV ONE (15:18)
[2019-10-13] MEDS ORDERED: ONDANSETRON 4 MG/2 ML INJ ONE (15:18)
[2019-10-13] MEDS ORDERED: LIDOCAINE MPF (2%) 20 MG/1 ML VIAL 5 ML ONE (15:18)
[2019-10-13] MEDS ORDERED: dexAMETHasone 20 MG/5 ML VIAL ONE (15:18)
[2019-10-13] MEDS ORDERED: HYDROmorphone 1 MG/1 ML INJ ONE (15:19)
[2019-10-13] MEDS ORDERED: propofoL 200 MG/20 ML VIAL IV ONE (15:19)
[2019-10-13] MEDS ORDERED: VANCOMYCIN/NS 1 GM/250 ML 1 GM/250 ML BAG IV NR (16:00)
[2019-10-13] MEDS ORDERED: VANCOMYCIN 1,500 MG in SODIUM CHLORIDE 0.9% 500 ML 500 ML IV NR (16:00)
[2019-10-13] MEDS ORDERED: LIDOCAINE (1%) 10 MG/1 ML VIAL 20 ML MDV INFILTRATI ONE (16:11)
[2019-10-13] MEDS ORDERED: BUPIVACAINE/PF (0.5%) 5 MG/1 ML 10 ML VIAL INFILTRATI ONE (16:11)
[2019-10-13] MEDS ORDERED: SODIUM CHLORIDE 0.9% IRRIG SOLN 3000 ML IR ONE (16:32)
[2019-10-13] MEDS ORDERED: IOHEXOL 300 MG/ML 50ML IV ONE (16:54)
[2019-10-13] MEDS ORDERED: SODIUM CHLORIDE 0.9% 100 ML IVPB IV ONE (16:55)
[2019-10-13] MEDS ORDERED: NEOSTIGMINE 10MG/10 ML INJ MDV ONE (17:11)
[2019-10-13] MEDS ORDERED: GLYCOPYRROLATE 0.4 MG/2 ML INJ ONE (17:11)
[2019-10-13] MEDS ORDERED: PHENYLEPHRINE/NS 1,000 MCG/10 ML SYRINGE (OR USE) IV ONE (17:11)
[2019-10-13] MEDS ORDERED: SODIUM CHLORIDE 0.9% IRR 1,500 ML BOTTLE IR ONE ×2 (17:12)
--- NOTE | 2019-10-13 17:13 | Post Operative Note ---
Pre-op diagnosis: symptomatic cholelithiasis, elevated bilirubin Post-op diagnosis: same Findings: 1. gallbladder with sludge and tiny stones 2. adhesions from liver to anterior abdominal wall 3. fatty liver, friable 4. negative cholangiogram Procedure: laparoscopic cholecystectomy with IOC Anesthesia: DAVIDA, local Surgeon: YUSUF LLANOS Estimated blood loss: minimal Pathology: list (gallbladder) Specimen disposition: to lab Condition: stable Disposition: PACU
[2019-10-13] MEDS ORDERED: oxyCODONE 5 MG TAB PO PRN (17:14)
--- NOTE | 2019-10-13 17:31 | Operative Report ---
Operative Report Operative Report: Date: 10/13/19 17:12 Initialization Date: 10/13/19 17:12 Pre-op diagnosis: symptomatic cholelithiasis, elevated bilirubin Post-op diagnosis: same Findings: 1. gallbladder with sludge and tiny stones 2. adhesions from liver to anterior abdominal wall 3. fatty liver, friable 4. negative cholangiogram Procedure: laparoscopic cholecystectomy with IOC Anesthesia: DAVIDA, local Surgeon: YUSUF LLANOS Estimated blood loss: minimal Pathology: list (gallbladder) Specimen disposition: to lab Condition: stable Disposition: PACU HPI an indication: 64-year-old female who presented to the hospital with complaints of right upper quadrant and epigastric abdominal pain associated with nausea and vomiting, decreased appetite. She was found to have a mildly elevated bilirubin. CT scan and ultrasound of the abdomen were performed which showed an abnormal gallbladder consisting of gallstones. The patient was admitted to the hospital and started on IV antibiotics, kept n.p.o., on IV flu ids. Despite pain medications, antiemetics, and IV antibiotics, the patient continued to complain of pain, nausea, inability to tolerate p.o. She refused MRI to evaluate the elevated bilirubin. The patient was deemed to have symptomatic cholelithiasis and recommendation was to proceed with cholecystectomy with intraoperative cholangiogram. I discussed all risk, benefits, alternatives to surgery with the patient and questions were answered. The patient was then consented for a laparoscopic possible open cholecystectomy with intraoperative cholangiogram. Procedure in detail: The patient was identified in the preoperative area and taken back to the operating room, placed on the operating room table in supine position. After anesthesia was induced, the abdomen was prepped and draped in usual sterile fashion and timeout was performed. Local anesthetic was infiltrated into all of the skin incision sites. Using a 11 blade a supraumbilical incision was made and through this a Veress needle was used to insufflate the abdomen. The position of the veress needle was confirmed with the saline drop test and the abdomen was then insufflated to 15 mmHg. Due to the patient's body habitus, the Veress needle could not traverse all layers of the abdomen and it was removed. A minnie incision was made in the left upper quadrant at Yen's point through which a Veress needle was then inserted. The Veress needle positioning was confirmed using the saline drop test and the abdomen successfully insufflated to 15 mmHg. A 5 mm Optiview trocar was then placed through the supraumbilical incision under direct visualization. The abdomen was then inspected and there was no underlying injury to any of the abdominal contents. An additional 12 mm subxyphoid port, and 2, 5mm RUQ ports were then placed under direct visualization. The patient was then placed into reverse Trendelberg and tilted to the left. The gallbladder was visualized and was mildly distended with bile. The liver was large, fatty, congested with dense adhesions to the anterior abdominal wall. The gallbladder was grasped and retracted cephalad. The cystic duct and artery were then carefully dissected and the critical view obtained. There were 2 small arteries seen entering the gallbladder directly. 2 clips were placed on the proximal aspect of both vessels and one distally and these were transected using EndoShears. A clip was placed on the distal aspect of the cystic duct and adduct anatomy created using EndoShears. Cholangiogram catheter was inserted into the cystic duct without difficulty and clamped. Injectable saline was used to test the catheter, which flushed easily without leakage. A cholangiogram was then performed with Omnipaque dye. The cholangiogram showed immediate filling of the cystic duct, common bile duct, duodenum, and hepatic ducts. No filling defect was seen and the common bile duct tapered normally. The cholangiogram catheter was then removed and the gallbladder once again retracted cephalad. 3 clips were placed on the proximal aspect of the cystic duct and the duct was completely transected using EndoShears. The gallbladder was dissected off the liver bed using hook electrocautery with hemostasis achieved along the way. The gallbladder was placed into an Endo Catch bag and removed via the 12 mm port. The gallbladder fossa was then inspected and there was no identifiable bleeding or bile leakage. Hemostasis was ensured. The clips on the cystic duct and artery were visualized and intact. The patient was then placed into neutral position and Morison's pouch was irrigated and the irrigant returned clear. The 12 mm port fascia was closed with interrupted 0 Vicryl suture using the Chaz Feliz device. The remaining ports were removed under direct visualization. Skin incisions were closed with 4-0 Monocryl subcuticular stitches and skin glue. All skin incisions were once again infiltrated with local anesthetic. At the end case all sponge, instrument, sharp counts were correct 2. The patient was awoken from anesthesia, extubated, taken to PACU in stable condition.
--- NOTE | 2019-10-13 17:34 | Fluoroscopy Report ---
Intraoperative cholangiogram Indication: Intraoperative biliary evaluation. Findings: Normal filling of the CBD with contrast spill into the duodenum. No obstructive stone dis ease. Impression: Unremarkable exam. Fluoroscopy time 40 seconds 2 fluoroscopic images Signer Name: Fan Moreland MD Signed: 10/13/2019 5:29 PM Workstation Name: [id number]
[2019-10-14] MEDS ORDERED: hydrALAZINE 20 MG/1 ML INJ IV PRN (00:17)
[2019-10-14] MEDS: ONDANSETRON 4 MG/2 ML INJ IV PRN ×2 (02:07→11:24)
[2019-10-14] MEDS ORDERED: hydrALAZINE 20 MG/1 ML INJ IV ONE (04:39)
[2019-10-14] MEDS ORDERED: POTASSIUM CHLORIDE ER 20 MEQ TAB PO NR (07:29)
--- NOTE | 2019-10-14 09:33 | Progress Note ---
Assessment and Plan Assessment and plan: Cholelithiasis, gall bladder sludge, with Abdominal pain Surgery was consulted, IV morphine s/p cholecystectomy yesterday has nausea and vomiting this morning UTI continue Levaquin Hypertension Continue antihypertensives Hypothyroidism Continue Synthroid Rheumatoid/osteoarthritis, stable DVT prophylaxis 10/14/19 patient witf cholelithiasis, s/p cholecystectomy. Still not feeling well, has nausea, vomiting. Consult GI. Cancel intended discharge. She is not stable for discharge. History Interval history: Patient presented with abdominal pain, nausea, vomiting,cholelithiasis had cholecystectomy yesterday Still c/o nausea, vomiting Hospitalist Physical - Physical exam Narrative exam: GEN: Not in acute distress, obese, lying in bed HEENT: Normocephalic, atraumatic, Neck: supple, No JVD Lungs: Clear to auscultation bilaterally, heart;S1 and S2 reg, no murmurs, rubs or gallop Abd:soft,mild tender RUQ, no rebound, non distended, normal bowel sounds, Ext: No edema, no clubbing, no cyanosis, left hip surgical wound with wound vac Neuro: Awake,alert,oriented X3 , no focal signs, - Constitutional Vitals: Temp Pulse Resp BP Pulse Ox 98.3 F 124 H 20 156/90 100 10/14/19 05:05 10/14/19 05:10 10/14/19 05:05 10/14/19 05:10 10/14/19 05:05 Results - Labs CBC & Chem 7: 10/12/19 08:59 10/13/19 08:17 Labs: Laboratory Last Values WBC 5.2 K/mm3 (4.5-11.0) 10/12/19 08:59 RBC 4.07 M/mm3 (3.65-5.03) 10/12/19 08:59 Hgb 11.6 gm/dl (10.1-14.3) 10/12/19 08:59 Hct 36.0 % (30.3-42.9) 10/12/19 08:59 MCV 88 fl (79-97) 10/12/19 08:59 MCH 29 pg (28-32) 10/12/19 08:59 MCHC 32 % (30-34) 10/12/19 08:59 RDW 16.3 % (13.2-15.2) H 10/12/19 08:59 Plt Count 297 K/mm3 (140-440) 10/12/19 08:59 Lymph % (Auto) 33.5 % (13.4-35.0) 10/12/19 08:59 Dougherty % (Auto) 12.8 % (0.0-7.3) H 10/12/19 08:59 Eos % (Auto) 2.5 % (0.0-4.3) 10/12/19 08:59 Baso % (Auto) 2.7 % (0.0-1.8) H 10/12/19 08:59 Lymph # 1.7 K/mm3 (1.2-5.4) 10/12/19 08:59 Dougherty # 0.7 K/mm3 (0.0-0.8) 10/12/19 08:59 Eos # 0.1 K/mm3 (0.0-0.4) 10/12/19 08:59 Baso # 0.1 K/mm3 (0.0-0.1) 10/12/19 08:59 Seg Neutrophils % 48.5 % (40.0-70.0) 10/12/19 08:59 Seg Neutrophils # 2.5 K/mm3 (1.8-7.7) 10/12/19 08:59 Sodium 140 mmol/L (137-145) 10/13/19 08:17 Potassium 3.5 mmol/L (3.6-5.0) L 10/13/19 08:17 Chloride 106.3 mmol/L (98-107) 10/13/19 08:17 Carbon Dioxide 23 mmol/L (22-30) 10/13/19 08:17 Anion Gap 14 mmol/L 10/13/19 08:17 BUN 3 mg/dL (7-17) L 10/13/19 08:17 Creatinine 0.5 mg/dL (0.7-1.2) L 10/13/19 08:17 Estimated GFR > 60 ml/min 10/13/19 08:17 BUN/Creatinine Ratio 6 % 10/13/19 08:17 Glucose 129 mg/dL (65-100) H 10/13/19 08:17 Calcium 9.2 mg/dL (8.4-10.2) 10/13/19 08:17 Total Bilirubin 1.30 mg/dL (0.1-1.2) H 10/13/19 08:17 AST 27 units/L (5-40) 10/13/19 08:17 ALT 23 units/L (7-56) 10/13/19 08:17 Alkaline Phosphatase 53 units/L (35-129) 10/13/19 08:17 Total Protein 5.6 g/dL (6.3-8.2) L 10/13/19 08:17 Albumin 3.1 g/dL (3.9-5) L 10/13/19 08:17 Albumin/Globulin Ratio 1.2 % 10/13/19 08:17 Lipase 11 units/L (13-60) L 10/11/19 21:55 Urine Color Cyndi (Yellow) 10/11/19 Unknown Urine Turbidity Slightly-cloudy (Clear) 10/11/19 Unknown Urine pH 6.0 (5.0-7.0) 10/11/19 Unknown Ur Specific [place] 1.016 (1.003-1.030) 10/11/19 Unknown Urine Protein 30 mg/dl mg/dL (Negative) 10/11/19 Unknown Urine Glucose (UA) Neg mg/dL (Negative) 10/11/19 Unknown Urine Ketones 80 mg/dL (Negative) 10/11/19 Unknown Urine Blood Sm (Negative) 10/11/19 Unknown Urine Nitrite Neg (Negative) 10/11/19 Unknown Urine Bilirubin Neg (Negative) 10/11/19 Unknown Urine Urobilinogen 4.0 mg/dL (<2.0) 10/11/19 Unknown Ur Leukocyte Esterase Tr (Negative) 10/11/19 Unknown Urine WBC (Auto) 8.0 /HPF (0.0-6.0) H 10/11/19 Unknown Urine RBC (Auto) 3.0 /HPF (0.0-6.0) 10/11/19 Unknown U Epithel Cells (Auto) 7.0 /HPF (0-13.0) 10/11/19 Unknown Urine Mucus 2+ /HPF 10/11/19 Unknown Catalan/IV: Voiding Method External Female Catheter IV Catheter Type [Left Upper Mid-line arm] IV Catheter Type [Left Wrist] INT / Saline Lock Active Medications - Current Medications Current Medications: Generic Name Dose Route Start Last Admin Trade Name Freq PRN Reason Stop Dose Admin Acetaminophen 650 mg 10/12/19 06:09 Tylenol PO Q4H PRN Pain MILD(1-3)/Fever >100.5/PULLIAM Enoxaparin Sodium 40 mg 10/12/19 10:00 10/13/19 09:51 Enoxaparin SUB-Q Not Given QDAY SYDNI Hydralazine HCl 5 mg 10/14/19 00:17 10/14/19 02:07 Apresoline IV 5 mg Q6HR PRN Administration Blood Pressure Hydromorphone HCl 0.5 mg 10/13/19 12:00 10/14/19 02:07 Dilaudid IV 0.5 mg Q10MIN PRN Administration Pain , Severe (7-10) Levofloxacin/Dextrose 500 mg in 100 mls @ 100 mls/hr 10/12/19 08:00 10/13/19 08:00 Levaquin 500mg/100ml IV 100 mls/hr Q24H SYDNI Administration Protocol Potassium Chloride/Dextrose/Sod Cl 20 meq in 1,000 mls @ 100 mls/hr 10/12/19 14:00 10/13/19 23:46 D5w/0.45% Nacl/Kcl 20 Meq IV 100 mls/hr DIRECT SYDNI Administration Lactated Ringer's 1,000 mls @ 100 mls/hr 10/13/19 14:00 10/13/19 23:45 Lactated Ringers IV Infused DIRECT SYDNI Infusion Morphine Sulfate 2 mg 10/12/19 06:09 10/12/19 17:19 Morphine IV 2 mg Q4H PRN Administration Pain , Severe (7-10) Ondansetron HCl 4 mg 10/12/19 06:09 10/14/19 02:07 Zofran IV 4 mg Q4H PRN Administration Nausea And Vomiting Oxycodone HCl 5 mg 10/13/19 17:14 Roxicodone PO Q6H PRN Pain, Moderate (4-6) Potassium Chloride 40 meq 10/14/19 07:29 K-Dur PO 10/14/19 15:00 ONCE NR Sodium Chloride 10 ml 10/12/19 10:00 10/13/19 22:06 Sodium Chloride Flush Syringe 10 Ml IV 10 ml BID SYDNI Administration Sodium Chloride 10 ml 10/12/19 06:09 10/14/19 05:11 Sodium Chloride Flush Syringe 10 Ml IV 10 ml PRN PRN Administration LINE FLUSH Nutrition/Malnutrition Assess - Dietary Evaluation Nutrition/Malnutrition Findings: Nutrition Notes Start: 10/12/19 14:11 Freq: Status: Active Protocol: Document 10/12/19 14:11 LM (Rec: 10/12/19 14:19 LM [id number]) Nutrition Notes Need for Assessment generated from: tooth cutter pinion,MST Initial or Follow up Assessment Current Diagnosis Hypertension Other Pertinent Diagnosis hx breast CA, UTI, abdominal pain, hypothyroid, L hip/ sacral wounds Current Diet NPO Labs/Tests K 3 Pertinent Medications Reviewed Height 5 ft 5 in Weight 104.326 kg Usual Body Weight 104.326 kg [place] Body Weight (kg) 56.81 BMI 38.2 Weight Status Obese Subjective/Other Information RN screen for MST and skin risk. Pt with wounds. 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 Pt is NPO now but stated her appetite is poor. Pt stated her UBW is 230 lb. Burn Absent Trauma Absent GI Symptoms Other Current % PO Negligible Minimum of two criteria No physical signs of malnutrition #1 Nutrition Diagnosis Inadequate oral intake Etiology Abdominal pain As Evidenced by Signs and Symptoms Pt statement of not eating for a few days, NPO Is patient on ventilator? No Is Patient Ambulatory and/or Out of Bed No REE-([facility]-confined to bed) 1911.948 Kcal/Kg value to use for calculation 14 Approximate Energy Requirements Using 1461 kcal/Kg Calculation Used for Recommendations Kcal/kg Additional Notes Protein: 101-122g (1.25-1.5g/ kg using AdjBW 81kg) Fluid: 1 ml/kcal Nutrition Intervention Change Diet Order: diet advancement when medically feasible Goal #1 diet advancement when medically feasible Anticipated Discharge Needs: cardiac Follow-Up By: 10/14/19 Additional Comments F/U for diet advancement, ONS needs
[2019-10-14] MEDS: ENOXAPARIN 40 MG/0.4 ML INJ SUB-Q SCH (11:06)
--- NOTE | 2019-10-14 13:02 | Progress Note ---
Assessment and Plan 64-year-old female s/p laparoscopic cholecystectomy with IOC 1. symptomatic cholelithiasis 2. intractable nausea/vomiting 3. fatty liver disease 1. Continue diet as chavez 2. IVF 3. prn pain and nausea control - will add reglan IV 4. abx - may discontinue from surgery standpoint 5. DVT ppx 6. N/V appears unrelated to surgery. Similar to symptoms prior to cholecystectomy. Abdominal pain appears to be improved after cholecystectomy. If N/V continues despite antiemetics, recommend GI consult. No further surgical intervention. Thank you for this consultation. Please call with any questions or concerns. Subjective Date of service: 10/14/19 Narrative: Pt seen and examined. c/o nausea with clear vomitus. Abdominal pain is related to incisions and different that prior to surgery. No f/c, cp, sob. Has only tolerated water PO. Objective Vital Signs - 12hr 10/14/19 10/14/19 10/14/19 02:07 05:05 05:10 Temperature 98.3 F Pulse Rate 104 H 124 H 124 H Respiratory 20 Rate Blood Pressure 172/85 156/90 156/90 O2 Sat by Pulse 100 Oximetry 10/14/19 10:57 Temperature 100.5 F H Pulse Rate 121 H Respiratory 20 Rate Blood Pressure 141/62 O2 Sat by Pulse 98 Oximetry - General physical appearance Narrative Exam: Gen: AAOx3. NAD CV: s1, S2+ resp: even and unlabored Abd: soft, ND. Mild periincisional TTP. Incisions c/d/i Ext: no c/c/e - Labs 10/12/19 08:59 10/13/19 08:17
[2019-10-14] MEDS ORDERED: GLYCERIN OP PRN (13:18)
[2019-10-14] MEDS ORDERED: PEG OP PRN (13:18)
[2019-10-14] MEDS ORDERED: HYPROMELLOSE OP PRN (13:18)
[2019-10-14] MEDS ORDERED: ALBUTEROL 8.5 GM INHALATION IH PRN (13:18)
[2019-10-14] MEDS ORDERED: METOPROLOL TARTRATE 5 MG/5 ML INJ IV ONE (13:20)
[2019-10-14] MEDS ORDERED: KETOROLAC TROMETHAMIN 0.4% OP SCH (13:30)
[2019-10-14] MEDS ORDERED: SOLIFENACIN SUCCINATE 10 MG PO SCH (13:30)
[2019-10-14] MEDS ORDERED: NON-FORMULARY EACH (Loratadine (Nf) 10 MG) PO SCH (13:30)
[2019-10-14] MEDS ORDERED: HYPROMELLOSE 0.5% OPHTH SOLN 15 ML OU PRN (13:35)
[2019-10-14] MEDS ORDERED: ALBUTEROL 2.5 MG/3 ML NEBU IH PRN (13:36)
[2019-10-14] MEDS: MORPHINE 2 MG/1 ML INJ IV PRN (13:44)
[2019-10-14] MEDS: SERTRALINE 25 MG TAB PO SCH (13:45)
[2019-10-14] MEDS: GABAPENTIN 300 MG CAP PO SCH ×2 (13:45→23:57)
[2019-10-14] MEDS: D5W/0.45% NACL/KCL 20 MEQ 20 MEQ/1,000 ML BAG IV SCH (14:08)
[2019-10-14] MEDS: PANTOPRAZOLE 40 MG TAB PO SCH (14:08)
--- NOTE | 2019-10-14 17:38 | Gastroenterology Consultation ---
History of Present Illness - Reason for Consult Consult date: 10/14/19 Intractable nausea/vomiting Requesting physician: DEANNA ELLSWORTH - History of Present Illness The patient is a 64 yo female who presented with recurrent abd pain with n/v. she has chronic nausea with recurrent emesis for several months. she has had episodes of ruq abd pain for which she presented and had ccy yesterday. continues to have nausea post procedure. kept her pills and some liquids down without emesis at the time of exam. abd pain has improved since procedure. no h/o diabetes. weight stable. denies pain with meals. + chronic reflux sx's. Past History Past Medical History: cancer (Breast), hypertension, hypothyroidism, other (Rheumatoid arthritis, osteoarthritis) Past Surgical History: Other (Laminectomy lumbar spine, cervical spine fusion, right mastectomy, debridement left hip wound) Social history: no significant social history Family history: no significant family history Medications and Allergies Allergies Allergy/AdvReac Type Severity Reaction Status Date / Time cephalexin [From Keflex] AdvReac Shortness Verified 05/23/19 14:29 of Breath codeine AdvReac Vomiting, Verified 05/23/19 14:29 headaches Home Medications Medication Instructions Recorded Confirmed Last Taken Type Albuterol Sulfate [Ventolin HFA] 2 puff IH Q4-6H PRN 06/13/16 10/12/19 05/21/19 History Bisoprolol/Hctz [Ziac 10-6.25] 1 each PO DAILY 06/13/16 10/12/19 05/21/19 Hi story Etodolac [Etodolac ER] 500 mg PO BID 06/13/16 10/12/19 05/21/19 History Levothyroxine Sodium 137 mcg PO QAM 06/13/16 10/12/19 05/21/19 History [Levothyroxine] Losartan [Cozaar] 100 mg PO QDAY 06/13/16 10/12/19 05/21/19 History methylPREDNISolone [Medrol] 8 mg PO QDAY 06/13/16 10/12/19 05/21/19 History Gabapentin 300 mg PO TID 04/21/19 10/12/19 05/22/19 History Hydroxychloroquine [Plaquenil] 200 mg PO BID 04/21/19 10/12/19 05/22/19 History Ketorolac Tromethamin 0.4%(Nf) 4 drop OP DAILY 04/21/19 10/12/19 05/21/19 History [Acular Ls 0.4% Ophth Randi] Loratadine (Nf) [Claritin (Nf)] 10 mg PO DAILY 04/21/19 10/12/19 05/21/19 History Peg 400/Hypromellose/Glycerin [Hm 1 drop OP PRN PRN 04/21/19 10/12/19 05/21/19 History Dry Eye Relief Eye Drops] Solifenacin Succinate [Vesicare] 10 mg PO DAILY 04/21/19 10/12/19 05/21/19 History Turmeric Root Extract [Turmeric] 2 tab PO DAILY 04/21/19 10/12/19 05/21/19 History Enoxaparin 40 mg SUB-Q QDAY #30 syringe 06/10/19 10/12/19 Unknown Rx HYDROcodone/APAP 5-325 [[place] 1 each PO Q6HR PRN #10 tablet 06/10/19 10/12/19 Unknown Rx 5-325 mg TAB] Magnesium Oxide 400 mg PO BID 7 Days tablet 06/10/19 10/12/19 Unknown Rx Minocycline HCl 100 mg PO BID #60 capsule 06/10/19 10/12/19 Unknown Rx Pantoprazole [Protonix TAB] 40 mg PO DAILY #30 tablet 06/10/19 10/12/19 Unknown Rx Sertraline [Zoloft] 25 mg PO QDAY #30 tablet 06/10/19 10/12/19 Unknown Rx Sodium,Potassium Phosphates 1 each PO BID 5 Days powd.pack 06/10/19 10/12/19 Unknown Rx [Phos-Nak Packet] Vancomycin 125 mg PO Q6HR 24 Days oralsyr 06/10/19 10/12/19 Unknown Rx traZODone [Desyrel] 50 mg PO QHS #30 tablet 06/10/19 10/12/19 Unknown Rx Active Meds: Active Medications Acetaminophen (Tylenol) 650 mg PO Q4H PRN PRN Reason: Pain MILD(1-3)/Fever >100.5/PULLIAM Albuterol (Proventil) 2.5 mg IH Q4HRT PRN PRN Reason: Shortness Of Breath Artificial Tears (Isopto Tears 0.5%) 2 drops OU PRN PRN PRN Reason: Dry Eye(s) Bisoprolol Fumarate (Ziac 10-6.25) [address] [facility] Cetirizine HCl (Cetirizine) [address] [facility] Enoxaparin Sodium (Enoxaparin) 40 mg SUB-Q QDAY [facility] Last Admin: 10/14/19 11:06 Dose: 40 mg Documented by: Gabapentin (Gabapentin) [address] [facility] Last Admin: 10/14/19 13:45 Dose: 300 mg Documented by: Hydralazine HCl (Apresoline) 5 mg IV Q6HR PRN PRN Reason: Blood Pressure Last Admin: 10/14/19 02:07 Dose: 5 mg Documented by: Levofloxacin/Dextrose (Levaquin 500mg/100ml) 500 mg in 100 mls @ 100 mls/hr IV Q24H [facility]; Protocol Stop: 10/16/19 08:59 Last Admin: 10/14/19 11:06 Dose: 100 mls/hr Documented by: Potassium Chloride/Dextrose/Sod Cl (D5w/0.45% Nacl/Kcl 20 Meq) 20 meq in 1,000 mls @ 100 mls/hr IV DIRECT [facility] Last Admin: 10/14/19 14:08 Dose: 100 mls/hr Documented by: Levothyroxine Sodium (Synthroid) 112 mcg PO DAILY@0600 [facility] Levothyroxine Sodium (Synthroid) 25 mcg PO DAILY@0600 [facility] Losartan Potassium (Cozaar) [address] [facility] Metoclopramide HCl (Reglan) [address] [facility] Miscellaneous Medication (Ketorolac Tromethamin 0.4%(Nf)) [address] [facility] Miscellaneous Medication (Solifenacin Succinate [Vesicare]) [address] [facility] Morphine Sulfate (Morphine) 2 mg IV Q4H PRN PRN Reason: Pain , Severe (7-10) Last Admin: 10/14/19 13:44 Dose: 2 mg Documented by: Ondansetron HCl (Zofran) 4 mg IV Q4H PRN PRN Reason: Nausea And Vomiting Last Admin: 10/14/19 11:24 Dose: 4 mg Documented by: Oxycodone HCl (Roxicodone) 5 mg PO Q6H PRN PRN Reason: Pain, Moderate (4-6) Pantoprazole Sodium (Protonix) [address] [facility] Last Admin: 10/14/19 14:08 Dose: 40 mg Documented by: Sertraline HCl (Zoloft) [address] [facility] Last Admin: 10/14/19 13:45 Dose: 25 mg Documented by: Sodium Chloride (Sodium Chloride Flush Syringe 10 Ml) [address] [facility] Last Admin: 10/14/19 11:07 Dose: 10 ml Documented by: Sodium Chloride (Sodium Chloride Flush Syringe 10 Ml) 10 ml IV PRN PRN PRN Reason: LINE FLUSH Last Admin: 10/14/19 05:11 Dose: 10 ml Documented by: Trazodone HCl (Desyrel) [address] [facility] reviewed/updated patient's home and current medications Review of Systems - Review of Systems All systems: negative (per HPI) Exam - Constitutional Vital Signs: Temp Pulse Resp BP Pulse Ox 100.5 F H 121 H 20 141/62 98 10/14/19 10:57 10/14/19 10:57 10/14/19 10:57 10/14/19 10:57 10/14/19 10:57 General appearance: no acute distress - Neck Neck: supple - Respiratory Respiratory effort: normal Respiratory: bilateral: CTA - Cardiovascular Rhythm: regular Heart Sounds: Present: S1 & S2 - Gastrointestinal General gastrointestinal: Present: soft, non-tender, non-distended - Neurologic Neurological: alert and oriented x3 - Psychiatric Psychiatric: appropriate mood/affect - Labs CBC & Chem 7: 10/12/19 08:59 10/13/19 08:17 Assessment and Plan 1. Intractable nausea/vomiting - unclear etiology; s/p CCY for ruq pain. unclear if related to GB source, vs reflux, medication side effect, gastroparesis etc. would manage conservatively for now with PPI, anti-emetics, and reglan prn. no prior endoscopy, and will likely need to have procedure done. if n/v improves, then this can be done as an outpatient. otherwise if persists over the weekend, can plan to perform prior to d/c.
[2019-10-14] MEDS: METOCLOPRAMIDE 10 MG/2 ML INJ IV SCH ×2 (17:40→23:58)
[2019-10-14] MEDS: CETIRIZINE 10 MG TAB PO SCH (17:40)
[2019-10-14] MEDS ORDERED: traZODone 50 MG TAB PO SCH (22:00)
[2019-10-14] MEDS: BISOPROLOL PO SCH (23:56)
[2019-10-14] MEDS: HCTZ 6.25 MG PO SCH (23:56)
[2019-10-15] MEDS: D5W/0.45% NACL/KCL 20 MEQ 20 MEQ/1,000 ML BAG IV SCH ×2 (01:25→11:16)
[2019-10-15] MEDS ORDERED: LEVOTHYROXINE 112 MCG TAB PO SCH (06:00)
[2019-10-15] MEDS ORDERED: LEVOTHYROXINE 25 MCG TAB PO SCH (06:00)
--- NOTE | 2019-10-15 08:57 | Gastroenterology Progress Note ---
Assessment and Plan GI: pt s/p lap lakeisha w/ nausea, vomiting reportedly improving - cardiac diet as ordered - continue antiemetics as other meds as needed - if tolerating po ok to d/c from GI standpoint - consider EGD if symptoms persist - will follow Subjective Date of service: 10/15/19 Interval history: - pt reports nausea, vomiting improved this am Objective - Constitutional Vitals: Temp Pulse Resp BP Pulse Ox 98.5 F 83 22 130/55 99 10/15/19 07:36 10/15/19 07:36 10/15/19 07:36 10/15/19 07:36 10/15/19 07:36 General appearance: no acute distress - EENT Eyes: PERRL - Respiratory Respiratory: bilateral: CTA - Cardiovascular Rhythm: regular Heart Sounds: Present: S1 & S2 - Gastrointestinal General gastrointestinal: Present: soft, non-tender, non-distended - Labs CBC & Chem 7: 10/12/19 08:59 10/15/19 05:22 Labs: Laboratory Results - last 24 hr 10/15/19 10/15/19 05:22 07:20 Potassium 4.0 POC Glucose 94
[2019-10-15] MEDS: BISOPROLOL PO SCH (08:59)
[2019-10-15] MEDS: CETIRIZINE 10 MG TAB PO SCH (08:59)
[2019-10-15] MEDS: HCTZ 6.25 MG PO SCH (08:59)
[2019-10-15] MEDS: METOCLOPRAMIDE 10 MG/2 ML INJ IV SCH ×2 (08:59→11:15)
[2019-10-15] MEDS: SERTRALINE 25 MG TAB PO SCH (08:59)
[2019-10-15] MEDS: PANTOPRAZOLE 40 MG TAB PO SCH (09:00)
[2019-10-15] MEDS: GABAPENTIN 300 MG CAP PO SCH ×2 (09:00→14:53)
[2019-10-15] MEDS: ENOXAPARIN 40 MG/0.4 ML INJ SUB-Q SCH (09:00)
[2019-10-15] MEDS ORDERED: LOSARTAN 50 MG TAB PO SCH (10:00)
[2019-10-15] MEDS ORDERED: NON-FORMULARY EACH (Losartan [Cozaar] 100 MG) PO SCH (10:00)
[2019-10-15] MEDS ORDERED: LEVOTHYROXINE SODIUM 137 MCG PO SCH (10:00)
[2019-10-15] MEDS: OXYBUTYNIN 5 MG TAB PO SCH ×2 (11:15→14:53)
--- NOTE | 2019-10-15 12:28 | Discharge Summary ---
Providers - Providers Date of Admission: 10/12/19 02:19 Date of discharge: 10/15/19 Attending physician: DEANNA ELLSWORTH 10/12/19 06:09 Consult to Physician [CONS] Routine Comment: Consulting Provider: YUSUF LLANOS Physician Instructions: Reason For Exam: ab GB 10/12/19 07:55 Consult to Wound/ET Nurse [CONS] Routine Reason For Exam: wound eval for current wound vac and sacral wound 10/12/19 23:16 Consult to Wound/ET Nurse [CONS] Routine Reason For Exam: wound eval for Left Heel eschar 10/14/19 13:16 Consult to Physician [CONS] Routine Comment: Consulting Provider: RO AGUILAR Physician Instructions: Reason For Exam: Nausea, s/p cholecystectomy Primary care physician: LUMP MAKER Hospitalization Condition: Fair Disposition: DC-01 TO HOME OR SELFCARE Core Measure Documentation - Palliative Care Palliative Care/ Comfort Measures: Not Applicable - Core Measures Any of the following diagnoses?: none Exam - Constitutional Vitals: Temp Pulse Resp BP Pulse Ox 99.0 F 82 22 108/48 100 10/15/19 11:04 10/15/19 11:04 10/15/19 11:04 10/15/19 11:04 10/15/19 11:04 Plan Activity: advance as tolerated Diet: low fat, low cholesterol, low salt Additional Instructions: 1.Follow up with PCP in 1 week. 2.Follow up with Dr. Llanos in 1 week Follow up with: PRIMARY CARE, [Primary Care Provider] - 3-5 Days Prescriptions: HYDROcodone/APAP 5-325 [[place] 5-325 mg TAB] 1 each PO Q6HR PRN #15 tablet PRN Reason: Pain
[2019-10-18 11:28] VITALS: BP 108/48
== END 2019-10-15 17:00 | disposition home health service (06) | DRG 418 ==
LOC: ED 21:10 → 4A 10-12 02:19
PROVIDERS: ADMIT Internal Medicine; ATTEND Internal Medicine
PROC: 0FT44ZZ Resection of Gallbladder, Percutaneous Endoscopic Approach (ICD-10-PCS; principal; 2019-10-13)
PROC: BF131ZZ Fluoroscopy of Gallbladder and Bile Ducts using Low Osmolar Contrast (ICD-10-PCS; 2019-10-13)
DX: K80.20 Calculus of gallbladder without cholecystitis without obstruction (principal); N39.0 Urinary tract infection, site not specified; E03.9 Hypothyroidism, unspecified; R10.9 Unspecified abdominal pain; I10 Essential (primary) hypertension; Z88.6 Allergy status to analgesic agent; Z88.8 Allergy status to other drugs, medicaments and biological substances; K21.9 Gastro-esophageal reflux disease without esophagitis; M19.90 Unspecified osteoarthritis, unspecified site; J45.909 Unspecified asthma, uncomplicated; Z79.899 Other long term (current) drug therapy; M06.9 Rheumatoid arthritis, unspecified; Z82.49 Family history of ischemic heart disease and other diseases of the circulatory system; Z85.3 Personal history of malignant neoplasm of breast; F32.9 Major depressive disorder, single episode, unspecified
CPT/HCPCS: 36415; 74176; 74300; 76700; 80053; 81001; 82962; 83690; 84132; 85025; 88304; G0378; A4217; J0360; J1100; J1170; J1650; J1956; J2250; J2270; J2370; J2405; J2704; J2710; J2765; J3010; J3370; J3480; J7030; J7040; J7120; Q9967